=== PATIENT | female | born 1950 | race Caucasian/White ===

== ENCOUNTER 2017-07-06 09:43 | Inpatient (IN) ==
[2017-07-06] MEDS ORDERED: ALBUTEROL/IPRATROPIUM 2.5mg-0.5mg/3ml NEB IH ONE (09:58)
[2017-07-06] MEDS ORDERED: METHYLPREDNISOLONE SOD SUCC 125mg/2ml INJECTION IVP ONE (09:58)
--- NOTE | 2017-07-06 10:29 | XRay Report ---
Indication: significant dyspnea PROCEDURE: XR chest 1V: Encounter: Initial Comparison: June 01, 2017 Findings: Emphysema again noted with basilar regions of scarring. Possible worsening airspace disease in the left lower lobe. No pneumothorax. Heart size and mediastinal contours are within normal limits allowing for the rotation present. Pulmonary vascularity is stable. Impression: Developing left lower lobe atelectasis or pneumonia. .
--- NOTE | 2017-07-06 11:32 | Emergency Department Report ---
SOB HPI - General Chief Complaint: Shortness of Breath/Dyspnea Stated Complaint: SOA Time Seen by Provider: 07/06/17 09:58 - History of Present Illness 67-year-old female brought by EMS for acute hypoxemia. Patient resides at home on BiPAP except when she goes to the restroom. At that time she changed to a nasal cannula. Her came home from work and found her lying on the floor in the bathroom with the nasal cannula under her nose, but the tubing not hooked to oxygen. Oxygen was still up to BiPAP. Patient's lips were blue and she was nonresponsive. He activated EMS and reconnected her oxygen. She did become more responsive with the oxygen attached by the time EMS arrived. She was then transported. No recent fever or chills. She has not noticed acute worsening of her shortness of breath prior to this episode today where she did not have the oxygen attached. She has been on BiPAP for many months now. She does not want to be intubated if she codes, but is asking for CPR if needed. - Related Data Home Medications Medication Instructions Recorded Confirmed Fluticasone/Salmeterol 500/50 1 puff INH BID #0 02/08/10 07/06/17 [Advair 500-50Diskus] Insulin Glargine,Hum.rec.anlog 15 u SQ HS #0 02/08/10 07/06/17 [Lantus] PredniSONE [Deltasone 10 mg] 10 mg PO DAILY #0 12/23/10 07/06/17 Fenofibric Acid (Choline) 135 mg PO DAILY #0 10/07/12 07/06/17 [Trilipix] Albuterol HFA Inhaler [Ventolin 1 puff INH DAILY 07/06/17 07/06/17 Hfa 90 mcg/actuation] Ascorbate Calcium [Vitamin C] 500 mg PO DAILY 07/06/17 07/06/17 Aspirin [Adult Aspirin] 81 mg PO DAILY 07/06/17 07/06/17 Furosemide [Lasix] 80 mg PO DAILY 07/06/17 07/06/17 Insulin Glargine,Hum.rec.anlog 15 unit SQ HS 07/06/17 07/06/17 [Lantus Solostar] Insulin Lispro [Humalog Kwikpen 8 unit SQ AC 07/06/17 07/06/17 U-100] LORazepam [Lorazepam] 1 mg PO QID 07/06/17 07/06/17 Magnesium Oxide [Magnesium] 400 mg PO DAILY 07/06/17 07/06/17 Omeprazole [Omeprazole] 40 mg PO DAILY 07/06/17 07/06/17 Potassium Chloride 20 meq PO QID 07/06/17 07/06/17 Theophylline Anhydrous 300 mg PO BID 07/06/17 07/06/17 Tiotropium Handihaler [Spiriva] 1 puff INH DAILY 07/06/17 07/06/17 Allergies Allergy/AdvReac Type Severity Reaction Status Date / Time metronidazole Allergy Unknown Verified 10/07/12 10:19 tetracycline Allergy Unknown Verified 10/07/12 10:19 Metronidazole HCl Allergy Unknown Uncoded 10/07/12 10:19 Review of Systems All systems: reviewed and negative except as stated PFSH Patient Stated Medical History Chronic Obstructive Pulmonary Yes Disease (COPD) Diabetes Mellitus Type 2 Yes Gastroesophageal Reflux Yes Disease Hx Incontinence Yes Hx Urinary Tract Infection Yes Osteoarthritis Yes Depression Yes - Social History Smoking status: Former smoker Physical Exam - Limitations Limitations: other (patient initially was using all effort to breathe and was not responding to questions.) - General General appearance: lethargic, in distress (respiratory distress) - Normal Exams: Head:: Normocephalic without trauma Abdomen:: Bowel sounds positive, soft, non-tender, non-distended, no hepatosplenomegaly, masses or bruits noted - Respiratory Respiratory exam: Present: crackles (with difficult lung sounds due to BiPAP.) - Cardiovascular Cardiovascular exam: Present: normal rhythm, tachycardia Course Vital Signs Temperature 97.4 F 07/06/17 09:43 Pulse Rate 105 H 07/06/17 09:43 Respiratory Rate 27 H 07/06/17 09:43 Blood Pressure 173/73 H 07/06/17 09:43 Pulse Oximetry 95 07/06/17 09:43 Temperature 97.4 F 07/06/17 09:43 Pulse Rate 102 H 07/06/17 11:00 Respiratory Rate 23 07/06/17 11:00 Blood Pressure 119/63 07/06/17 11:00 Pulse Oximetry 99 07/06/17 11:00 Shortness of Breath/Dyspnea - [facility] Narrative Medical decision making narrative: Peripheral IV, 500 ML normal saline bolus. BiPAP looked up with oxygen and O2 sats carlo to 98%. Labs ordered and chest x-ray. White count returned slightly elevated at 11.7 with left shift. Chest x-ray shows right lower lobe pneumonia. Patient will remain on BiPAP with full O2 support and treat with Rocephin 1 g IV Zithromax by mouth per community-acquired pneumonia protocol. She was given Solu-Medrol 125 mg IV by EMS during transport. DuoNeb 2 in the ER. Viral respiratory panel is still pending at time of admission. - Differential Diagnosis Likely: acute exacerbation of chronic obstructive airways disease, congestive heart failure, community acquired pneumonia, asthma with exacerbation, pulmonary embolism - Medical Records Attestation: I reviewed the patient's medical records. - Lab Data Attestation: I reviewed the patient's lab results. Result diagrams: 07/06/17 09:51 07/06/17 09:51 Lab Results 07/06/17 07/06/17 07/06/17 Range/Units 09:51 09:51 10:21 WBC 11.7 H (4.5-11.0) T/MM3 RBC 4.85 (4.00-5.20) M/MM3 Hgb 14.7 (12-16) GM/DL Hct 49.2 H (36-46) % MCV 101.4 H (80-100) UM3 MCH 30.3 (26-34) UUG MCHC 29.9 L (31-37) GM/DL RDW Std Deviation 48.8 (36.9-50.2) FL Plt Count 239 (130-400) T/MM3 MPV 11.2 (9.4-12.4) UM3 Immature Gran % (Auto) 0.3 (0.0-0.5) % Neut % (Auto) 49.7 (33-66) % Lymph % (Auto) 36.5 (23-45) % [place] % (Auto) 7.1 (0-9.0) % Eos % (Auto) 5.6 H (0-4) % Baso % (Auto) 0.8 (0-2) % Neut # (Auto) 5.8 (1.8-7.7) T/MM3 Lymph # (Auto) 4.3 (1-4.8) T/MM3 [place] # (Auto) 0.8 (0-0.8) T/MM3 Eos # (Auto) 0.7 H (0-0.5) T/MM3 Baso # (Auto) 0.1 (0-0.2) T/MM3 Abs Immat Gran (auto) 0.03 (0.00-0.03) T/MM3 Sample Site Alveolar Air PO2 (4.0-801.0) mmHg ABG pH (7.350-7.450) ABG pCO2 (34.0-45.0) MMHG ABG pO2 (80.0-100.0) MMHG ABG HCO3 (22.0-26.0) MEQ/L ABG Total CO2 (23.0-27.0) MEQ/L ABG O2 Saturation (95.0-98.0) % ABG Base Excess (-2.0-2.0) MMOL/L Modified Aubrey Test A-a Gradient (0.0-801.0) mmHg a/A Ratio (-1.0-101.0) % O2 Delivery Method FiO2 % PEEP Inspiratory Pressure Pressure Support Turbidity < 20 (0-20) Sodium 146 H (134-144) MEQ/L Potassium 4.1 (3.6-5) MEQ/L Chloride 98 (98-107) MEQ/L Carbon Dioxide 36 H (22-30) MEQ/L Anion Gap 12 (5-15) meq/L BUN 17.0 (7-17) MG/DL Creatinine 0.7 (0.7-1.2) mg/dL GFR Calculation 84 BUN/Creatinine Ratio 24 (6-26) RATIO Glucose 263 H (65-110) MG/DL Calculated Osmolality 292 H (261-280) MOSM/KG Calcium 9.2 (8.4-10.2) MG/DL Total Bilirubin 0.60 (0.20-1.30) MG/DL Icterus Index < 2 (0-7) AST 27 (14-36) U/L ALT 17 (1-35) U/L Alkaline Phosphatase 66 (38-126) U/L Troponin I < 0.012 (0-0.12) ng/ml NT-Pro-B Natriuret Pep 59.4 (0-175) pg/mL Total Protein 6.6 (6.3-8.2) g/dL Albumin 4.2 (3.5-5.0) g/dL Globulin 2.4 (2.4-3.6) G/DL Albumin/Globulin Ratio 1.8 (1.1-2.2) RATIO Plasma Lactate Cancelled 1.1 Specimen Hemolysis < 15 (0-25) / Range/Units 10:48 WBC (4.5-11.0) T/MM3 RBC (4.00-5.20) M/MM3 Hgb (12-16) GM/DL Hct (36-46) % MCV (80-100) UM3 MCH (26-34) UUG MCHC (31-37) GM/DL RDW Std Deviation (36.9-50.2) FL Plt Count (130-400) T/MM3 MPV (9.4-12.4) UM3 Immature Gran % (Auto) (0.0-0.5) % Neut % (Auto) (33-66) % Lymph % (Auto) (23-45) % [place] % (Auto) (0-9.0) % Eos % (Auto) (0-4) % Baso % (Auto) (0-2) % Neut # (Auto) (1.8-7.7) T/MM3 Lymph # (Auto) (1-4.8) T/MM3 [place] # (Auto) (0-0.8) T/MM3 Eos # (Auto) (0-0.5) T/MM3 Baso # (Auto) (0-0.2) T/MM3 Abs Immat Gran (auto) (0.00-0.03) T/MM3 Sample Site R radial Alveolar Air PO2 161.5 (4.0-801.0) mmHg ABG pH 7.185 L* (7.350-7.450) ABG pCO2 100 H* (34.0-45.0) MMHG ABG pO2 69.8 L (80.0-100.0) MMHG ABG HCO3 37.9 H (22.0-26.0) MEQ/L ABG Total CO2 41.0 H (23.0-27.0) MEQ/L ABG O2 Saturation 87.0 L (95.0-98.0) % ABG Base Excess 4.9 H (-2.0-2.0) MMOL/L Modified Aubrey Test Positive A-a Gradient 91.7 (0.0-801.0) mmHg a/A Ratio 43.2 (-1.0-101.0) % O2 Delivery Method Bipap FiO2 40 % PEEP 5 Inspiratory Pressure 20 Pressure Support 15 Turbidity (0-20) Sodium (134-144) MEQ/L Potassium (3.6-5) MEQ/L Chloride (98-107) MEQ/L Carbon Dioxide (22-30) MEQ/L Anion Gap (5-15) meq/L BUN (7-17) MG/DL Creatinine (0.7-1.2) mg/dL GFR Calculation BUN/Creatinine Ratio (6-26) RATIO Glucose (65-110) MG/DL Calculated Osmolality (261-280) MOSM/KG Calcium (8.4-10.2) MG/DL Total Bilirubin (0.20-1.30) MG/DL Icterus Index (0-7) AST (14-36) U/L ALT (1-35) U/L Alkaline Phosphatase (38-126) U/L Troponin I (0-0.12) ng/ml NT-Pro-B Natriuret Pep (0-175) pg/mL Total Protein (6.3-8.2) g/dL Albumin (3.5-5.0) g/dL Globulin (2.4-3.6) G/DL Albumin/Globulin Ratio (1.1-2.2) RATIO Plasma Lactate Specimen Hemolysis (0-25) - Radiology Data Attestation: I reviewed the patient's radiology results. Disposition Clinical Impression: Community acquired pneumonia, Acute exacerbation of chronic obstructive airways disease Disposition: [facility] Condition: Stable Prescriptions: No Action Fluticasone/Salmeterol 500/50 [Advair 500-50Diskus] 1 puff INH BID #0 Insulin Glargine,Hum.rec.anlog [Lantus] 15 u SQ HS #0 Aspirin [Adult Aspirin] 81 mg PO DAILY Ascorbate Calcium [Vitamin C] 500 mg PO DAILY LORazepam [Lorazepam] 1 mg PO QID Insulin Glargine,Hum.rec.anlog [Lantus Solostar] 15 unit SQ HS Magnesium Oxide [Magnesium] 400 mg PO DAILY Insulin Lispro [Humalog Kwikpen U-100] 8 unit SQ AC Albuterol HFA Inhaler [Ventolin Hfa 90 mcg/actuation] 1 puff INH DAILY Theophylline Anhydrous 300 mg PO BID PredniSONE [Deltasone 10 mg] 10 mg PO DAILY #0 Fenofibric Acid (Choline) [Trilipix] 135 mg PO DAILY #0 Furosemide [Lasix] 80 mg PO DAILY Omeprazole [Omeprazole] 40 mg PO DAILY Potassium Chloride 20 meq PO QID Tiotropium Handihaler [Spiriva] 1 puff INH DAILY Referrals: John Williamson MD [Primary Care Provider] - Nicholas Cm MD [Physician] - Time of Disposition: 11:38 - Seen By: physician
[2017-07-06] MEDS: SALINE FLUSH 10ml SYRINGE IVF PRN (11:48)
[2017-07-06] MEDS: CEFTRIAXONE 1 G in NS 100 ML IV SCH (11:48)
--- NOTE | 2017-07-06 12:07 | History & Physical Report ---
History of Present Illness Date: 07/06/17 Chief complaint: Unresponsive HPI: Allyson Salgado is a 67 y/o woman with a hx of O2-dependent COPD. She wears 6- 7L of O2 continuously and uses BiPAP at night. She is wheelchair bound, left unable to ambulate b/c of breathing difficulties. Her left at 0600 on , leaving Allyson still in bed sleeping. When he returned around 0900 to get her ready to go to see Dr. Amado, however, she was lying on the floor, unresponsive. He noticed that the oxygen tubing was in the BiPAP but was not plugged in. He suspected that she was trying to check the machine, and fell out of it - it's unknown if she became unresponsive first from CO2 retention/ hypoxia or if she simply lost her balance. He called 911 and she was transferred to [facility] [place] [facility]. She was afebrile, tachycardic (105), tachypneic (27), and hypertensive. She was started on BiPAP. She was unresponsive initially and labs showed severe resp acidosis with pH of 7.185, pCO2 of 100, and pO2 of 69.8. CXR showed LLL pneumonia. WBC was elevated at 11.7; lactate level was normal. She had a mildly elevated sodium at 146. Resp panel was ordered. With BiPAP, her mentation improved and she was able to answer questions. She denies having a cough but admits to subjective fever/chills. She uses a Neti pot for sinus problems; denies seasonal allergies. She has dyspnea at baseline but it hasn't been worse lately. She denies choking/aspiration. She feels weak but not dizzy. She denies chest pain or palpitations. No abdominal pain, n/v/d or appetite changes. She has constipation. She notes urinary urgency which she attributes to furosemide use. She denies leg swelling. There are a few bruises on her legs. With her LLL pneumonia and acute on chronic resp failure, the hospitalist dept was notified for inpt admission. LOS is expected to exceed 2 overnights. Review of Systems All systems PM: 10-point ROS was reviewed, no additional remarkable complaints except - Constitutional Constitutional: Present: as per HPI - EENMT Eyes: Absent: change in vision Nose: Present: as per HPI Mouth/Throat: Present: as per HPI - Cardiovascular Cardiovascular: Present: as per HPI Vascular: Present: see HPI - Respiratory Respiratory: Present: as per HPI - Gastrointestinal Gastrointestinal: Present: as per HPI - Genitourinary Genitourinary: Present: as per HPI - Musculoskeletal Musculoskeletal: Present: as per HPI - Integumentary/Breasts Integumentary: Absent: rash - Neurological Neurological: Present: as per HPI - Psychiatric Psychiatric: Absent: anxiety - Endocrine Endocrine: Present: as per HPI - Hematologic/Lymphatic Hematologic/Lymphatic: Present: as per HPI - Allergic/Immunologic Allergic/Immunologic: Present: as per HPI Past Medical History Medical History: Medical History (Last Updated 07/06/17 @ 13:32 by Lanie Perry APRN) COPD (chronic obstructive pulmonary disease) Diabetes mellitus, type 2 GERD (gastroesophageal reflux disease) High cholesterol Medical History Updates: Previous H&P indicates mild CHF but pt denies. Echo in 2009 shows EF of 45-55%. Obesity, BMI 33.0 Surgical History: Hysterectomy. Cholecystectomy. C-sect x2. Hysterectomy Family History Updates: Father of lung cancer, unknown age. Mother of uterine cancer. Previous H&P indicates a sister with DM but pt cannot confirm. Family History: As Above - Social History Smoking status: Former smoker (quit in 2006) Substance use type: does not use Alcohol intake frequency: does not drink Household members: spouse Social history: PCP: Dr. Williamson Medications Home Medications Medication Instructions Recorded Confirmed Type Fluticasone/Salmeterol 500/50 1 puff INH BID #0 02/08/10 07/06/17 History [Advair 500-50Diskus] Insulin Glargine,Hum.rec.anlog 15 u SQ HS #0 02/08/10 07/06/17 History [Lantus] PredniSONE [Deltasone 10 mg] 10 mg PO DAILY #0 12/23/10 07/06/17 History Fenofibric Acid (Choline) 135 mg PO DAILY #0 10/07/12 07/06/17 History [Trilipix] Albuterol HFA Inhaler [Ventolin 1 puff INH DAILY 07/06/17 07/06/17 History Hfa 90 mcg/actuation] Ascorbate Calcium [Vitamin C] 500 mg PO DAILY 07/06/17 07/06/17 History Aspirin [Adult Aspirin] 81 mg PO DAILY 07/06/17 07/06/17 History Furosemide [Lasix] 80 mg PO DAILY 07/06/17 07/06/17 History Insulin Glargine,Hum.rec.anlog 15 unit SQ HS 07/06/17 07/06/17 History [Lantus Solostar] Insulin Lispro [Humalog Kwikpen 8 unit SQ AC 07/06/17 07/06/17 History U-100] LORazepam [Lorazepam] 1 mg PO QID 07/06/17 07/06/17 History Magnesium Oxide [Magnesium] 400 mg PO DAILY 07/06/17 07/06/17 History Omeprazole [Omeprazole] 40 mg PO DAILY 07/06/17 07/06/17 History Potassium Chloride 20 meq PO QID 07/06/17 07/06/17 History Theophylline Anhydrous 300 mg PO BID 07/06/17 07/06/17 History Tiotropium Handihaler [Spiriva] 1 puff INH DAILY 07/06/17 07/06/17 History Allergies Allergy/AdvReac Type Severity Reaction Status Date / Time metronidazole Allergy Unknown Verified 07/06/17 12:30 tetracycline Allergy Unknown Verified 07/06/17 12:30 Metronidazole HCl Allergy Unknown Uncoded 07/06/17 12:30 Exam Vital Signs: Temperature 97.4 F 07/06/17 09:43 Pulse Rate 101 H 07/06/17 11:15 Respiratory Rate 26 H 07/06/17 11:15 Blood Pressure 122/60 07/06/17 11:15 Pulse Oximetry 98 07/06/17 11:15 - Constitutional Present: mild distress, well nourished, well developed, obese - Routine HEENT Exam Head: Present: normocephalic Eye: Present: PERRL. Absent: conjunctival icterus, scleral injection ENT: Present: mucous membranes dry Comments: BiPAP mask in place - Routine Neck Exam Present: supple - Routine Respiratory Exam Present: wheezes (rare), diminished air movement - Routine Cardiovascular Exam Present: RRR, S1, S2 - Routine Abdominal Exam Present: soft, normoactive bowel sounds, non distended, non tender - Routine Extremities Exam Present: no edema, pulses intact - Routine Skin Exam Present: intact, dry, warm, ecchymosis (b/l lower ext) - Routine Neurological Exam Present: alert, oriented X3, CN II-XII intact, normal speech - Routine Psychiatric Exam Present: normal affect, normal thought process, cooperative Results - Labs CBC & Chem 7: 07/06/17 09:51 07/06/17 09:51 - ABG Interpretation Attestation: I reviewed and interpreted this ABG. ABG results: Laboratory Tests 07/06/17 10:48 ABG pH 7.185 L* ABG pCO2 100 H* ABG pO2 69.8 L ABG HCO3 37.9 H ABG Total CO2 41.0 H Interpretation: respiratory acidosis - Imaging and Cardiology Chest x-ray Status: image reviewed by me Additional comments: Developing left lower lobe atelectasis or pneumonia. Assessment and Plan (1) Community acquired pneumonia Current visit: Yes Status: Acute (2) Acute exacerbation of chronic obstructive airways disease Current visit: Yes Status: Acute Assessment and Plan: Assessment Acute on chronic hypercapnic/hypoxic resp failure with resp acidosis CAP COPD with exac. CO2 Narcosis DM2, insulin dependent Dyslipidemia GERD Mild CHF per hx Obesity Plan Admit, inpatient status under the hospitalist service. Consult Dr. Amado. Rocephin/azithromycin for CAP. Solu-Medrol 62.5 mg TID for COPD. Supportive care with DuoNeb, home inhalers, theophylline, BiPAP PRN. Home O2 6- 7L. Monitor blood sugars; resume home insulin. Resume lasix + KDur. I/O, daily weights. Monitor telemetry. Code status: DNI. DVT Prophylaxis: SCD's, Lovenox GI Prophylaxis: Protonix Resuscitation Status: Do Not Intubate - Physician Narrative Physician: Yong Cuevas MD Narrative: Date: 07/06/17 Time: 1551 Have independently interviewed and examined pt. Chart reviewed. Case discussed with ED physician and my DIRECTOR RECORDS MANAGEMENT. Care plan developed with my supervision; agree with above. Presents to [facility] [place] [facility] via EMS secondary to being found down at home. found her unresponsive on the ground without O2 or BiPAP. Very somnolent in ED. With initiation of BiPAP, level of alertness improved. Patient not sure what happened ; remembers getting up to go to the bathroom and the next thing she recalls is that she is her. Not been feeling well in the past days. Increasing sinus congestion. Some SOA and cough, but little congestion or sputum. No pain with breathing. No chest pressure, heaviness, or palpitations. Appetite stable. Stools slow. Urinating well. Evaluated in ED. pCO2 markedly elevated. CXR showing early infiltrate. Started on BiPAP and alertness improved. Admitted for further treatment of acute on chronic respiratory failure and pneumonia. Anticipate greater than 2 midnights of care needed. Lungs: decreased, diminished air movement. Breaths comfortably on BiPAP. CV: regular AB: soft nt BS decreased MSE: awake alert appropriate Plan: Inpatient admission to [facility] [place] for treatment of acute on chronic respiratory failure and pneumonia. Anticipate greater than 2 midnights of care needed. BiPAP for ventilatory support to decrease CO2. Ceftriaxone and azithromycin for pulmonary coverage. Solu-Medrol and breathing treatments. Will consult with Dr Amado for pulm evaluation. Monitor sugars. With patient more awake and alert, will have PT/OT see tomorrow to help improve functional status. Lovenox and SCD for DVT prevention. DNI as per her requests. Care to return to Dr Williamson at time of discharge from [facility]. Hospital Course Summary Disclaimer: The visit summary below is not to be considered part of the above Progress Note. Hospital Course: 07/06 Admit, inpatient status under the hospitalist service. Consult Dr. Amado. Rocephin/azithromycin for CAP. Solu-Medrol 62.5 mg TID for COPD. Supportive care with DuoNeb, home inhalers, theophylline, BiPAP PRN. Home O2 6- 7L. Monitor blood sugars; resume home insulin. Resume lasix + KDur. I/O, daily weights. Monitor telemetry. Code status: DNI. Care to return to Dr Williamson at time of discharge from [facility] [place] [facility].
[2017-07-06] MEDS ORDERED: ALBUTEROL/IPRATROPIUM 2.5mg-0.5mg/3ml NEB AEROSOL PRN (12:28)
[2017-07-06] MEDS: ENOXAPARIN 40 MG/0.4 ML INJECTION SQ SCH (14:24)
[2017-07-06] MEDS: AZITHROMYCIN IV 500 MG in NS 250ml 250 ML IV SCH (14:24)
[2017-07-06] MEDS: BUDESONIDE INH.SOLN 0.5mg/2ml NEB AEROSOL SCH ×3 (14:34→20:06)
[2017-07-06] MEDS ORDERED: INSULIN ASPART 100unit/ml INJECTION SQ ONE (14:45)
[2017-07-06] MEDS ORDERED: Ipratropium Inh NEB 0.02% (0.5mg/2.5ml) AEROSOL SCH (15:00)
[2017-07-06] MEDS: ALBUTEROL/IPRATROPIUM 2.5mg-0.5mg/3ml NEB AEROSOL SCH ×3 (15:20→20:06)
--- NOTE | 2017-07-06 18:10 | Pulmonology Consult Note ---
History of Present Illness Consult date: 07/06/17 Requesting physician: Yong Cuevas Reason for consult: COPD Chief complaint: unresponsive History of present illness: Allyson Salgado is a 67 y/o woman with GOLD stage D COPD. Her FEV1 is unknown due to inability to get a PFT. She has advanced disease and has been treated by several pulmonologists in the past. I recently met her and started caring for her chronic hypercapnic respiratory failure. We have helped her obtain a home BIPAP ST 25/5, rate 15 with 6 lpm O2 bled in. Her DME company is [employer]. We were in the process of trying to switch her to a Respironics Trilogy home vent to mask, but she has not yet received that. She states she uses her BIPAP ST regularly. This morning she states she remembers taking off her BIPAP and putting on the O2 to go to the bathroom. She doesn't remember anything after that. She is wheelchair bound, left unable to ambulate b/c of breathing difficulties. Her left at 0600 on 07/06/17, leaving Allyson still in bed sleeping. When he returned around 0900 to get her ready to go to see Dr. Amado, however, she was lying on the floor, unresponsive. He noticed that the oxygen tubing was still in the BiPAP and that her cannula was not plugged in. He suspected that she was trying to check the machine, and fell out of it - it's unknown if she became unresponsive first from CO2 retention/ hypoxia or if she simply lost her balance. He called 911 and she was transferred to [facility]. She was afebrile, tachycardic (105), tachypneic (27), and hypertensive. She was started on BiPAP. She was unresponsive initially and labs showed severe resp acidosis with pH of 7.185, pCO2 of 100, and pO2 of 69.8. CXR showed LLL pneumonia. WBC was elevated at 11.7; lactate level was normal. She had a mildly elevated sodium at 146. Resp panel was ordered. With BiPAP, her mentation improved and she was able to answer questions. She denies having a cough but admits to subjective fever/chills. She uses a Neti pot for sinus problems; denies seasonal allergies. She has dyspnea at baseline but it hasn't been worse lately. She denies choking/aspiration. She feels weak but not dizzy. She denies chest pain or palpitations. No abdominal pain, n/v/d or appetite changes. She has constipation. She notes urinary urgency which she attributes to furosemide use. She denies leg swelling. There are a few bruises on her legs. With her LLL pneumonia and acute on chronic resp failure, the hospitalist dept was notified for inpt admission. LOS is expected to exceed 2 overnights. Review of Systems All systems PM: 10-point ROS was reviewed, no additional remarkable complaints except - Constitutional Constitutional: Present: as per HPI - EENMT Eyes: Absent: change in vision Nose: Present: as per HPI Mouth/Throat: Present: as per HPI - Cardiovascular Cardiovascular: Present: as per HPI Vascular: Present: see HPI - Respiratory Respiratory: Present: as per HPI - Gastrointestinal Gastrointestinal: Present: as per HPI - Genitourinary Genitourinary: Present: as per HPI - Musculoskeletal Musculoskeletal: Present: as per HPI - Integumentary/Breasts Integumentary: Absent: rash - Neurological Neurological: Present: as per HPI - Psychiatric Psychiatric: Absent: anxiety - Endocrine Endocrine: Present: as per HPI - Hematologic/Lymphatic Hematologic/Lymphatic: Present: as per HPI - Allergic/Immunologic Allergic/Immunologic: Present: as per HPI Past Medical History Medical History: Medical History (Last Updated 07/06/17 @ 13:32 by Lanie Perry APRN) COPD (chronic obstructive pulmonary disease) Diabetes mellitus, type 2 GERD (gastroesophageal reflux disease) High cholesterol Medical History Updates: Previous H&P indicates mild CHF but pt denies. Echo in 2009 shows EF of 45-55%. Obesity, BMI 33.0 Surgical History: Hysterectomy. Cholecystectomy. C-sect x2. Hysterectomy Family History Updates: Father of lung cancer, unknown age. Mother of uterine cancer. Previous H&P indicates a sister with DM but pt cannot confirm. Family History: As Above - Social History Smoking status: Former smoker (quit in 2006) Substance use type: does not use Alcohol intake frequency: does not drink Household members: spouse Social history: [facility] Patient Stated Medical History Chronic Obstructive Pulmonary Yes Disease (COPD) Diabetes Mellitus Type 2 Yes Gastroesophageal Reflux Yes Disease Hx Incontinence Yes Hx Urinary Tract Infection Yes Osteoarthritis Yes Depression Yes Clinic Medical History (Last Updated 07/06/17 @ 13:32 by Lanie Perry APRN) COPD (chronic obstructive pulmonary disease) (Acute Medical) Diabetes mellitus, type 2 (Acute Medical) GERD (gastroesophageal reflux disease) (Acute Medical) High cholesterol (Acute Medical) Medical History Updates: Previous H&P indicates mild CHF but pt denies. Echo in 2009 shows EF of 45-55%. Obesity, BMI 33.0 Surgical History: Hysterectomy. Cholecystectomy. C-sect x2. Hysterectomy Family History Updates: Father of lung cancer, unknown age. Mother of uterine cancer. Previous H&P indicates a sister with DM but pt cannot confirm. - Social History Smoking status: Former smoker (quit in 2006) Substance use type: does not use Alcohol intake frequency: does not drink Household members: spouse Medications Home Medications Medication Instructions Recorded Confirmed Type Fluticasone/Salmeterol 500/50 1 puff INH BID #0 02/08/10 07/06/17 History [Advair 500-50Diskus] Insulin Glargine,Hum.rec.anlog 15 u SQ HS #0 02/08/10 07/06/17 History [Lantus] PredniSONE [Deltasone 10 mg] 10 mg PO DAILY #0 12/23/10 07/06/17 History Fenofibric Acid (Choline) 135 mg PO DAILY #0 10/07/12 07/06/17 History [Trilipix] Albuterol HFA Inhaler [Ventolin 1 puff INH DAILY 07/06/17 07/06/17 History Hfa 90 mcg/actuation] Ascorbate Calcium [Vitamin C] 500 mg PO DAILY 07/06/17 07/06/17 History Aspirin [Adult Aspirin] 81 mg PO DAILY 07/06/17 07/06/17 History Furosemide [Lasix] 80 mg PO DAILY 07/06/17 07/06/17 History Insulin Glargine,Hum.rec.anlog 15 unit SQ HS 07/06/17 07/06/17 History [Lantus Solostar] Insulin Lispro [Humalog Kwikpen 8 unit SQ AC 07/06/17 07/06/17 History U-100] LORazepam [Lorazepam] 1 mg PO QID 07/06/17 07/06/17 History Magnesium Oxide [Magnesium] 400 mg PO DAILY 07/06/17 07/06/17 History Omeprazole [Omeprazole] 40 mg PO DAILY 07/06/17 07/06/17 History Potassium Chloride 20 meq PO QID 07/06/17 07/06/17 History Theophylline Anhydrous 300 mg PO BID 07/06/17 07/06/17 History Tiotropium Handihaler [Spiriva] 1 puff INH DAILY 07/06/17 07/06/17 History Allergies Allergy/AdvReac Type Severity Reaction Status Date / Time metronidazole Allergy Unknown Verified 07/06/17 12:30 tetracycline Allergy Unknown Verified 07/06/17 12:30 Metronidazole HCl Allergy Unknown Uncoded 07/06/17 12:30 Exam Vital signs: Temperature 97.7 F 07/06/17 16:03 Pulse Rate 58 L 07/06/17 16:52 Respiratory Rate 16 07/06/17 17:14 Blood Pressure 112/58 07/06/17 16:03 Pulse Oximetry 95 07/06/17 16:03 - Constitutional no acute distress, morbidly obese - Routine HEENT Exam Head: Present: normocephalic, atraumatic Eye: Absent: conjunctival icterus - Routine Neck Exam Present: supple, full ROM - Routine Respiratory Exam Present: decreased breath sounds, prolonged expiratory phase. Absent: wheezes - Routine Cardiovascular Exam Present: RRR - Routine Abdominal Exam Present: soft. Absent: guarding - Routine Extremities Exam Absent: cyanosis, clubbing - Routine Skin Exam Present: intact. Absent: rash - Routine Neurological Exam Present: alert. Absent: motor deficit Results - Laboratory Findings CBC and BMP: 07/06/17 09:51 07/06/17 09:51 ABG ABG pH 7.185 (7.350-7.450) L* 07/06/17 10:48 ABG pCO2 100 MMHG (34.0-45.0) H* 07/06/17 10:48 ABG pO2 69.8 MMHG (80.0-100.0) L 07/06/17 10:48 ABG O2 Saturation 87.0 % (95.0-98.0) L 07/06/17 10:48 - Diagnostic Findings Chest x-ray: report reviewed, image reviewed Assessment and Plan (1) Syncope Status: Acute Assessment and plan: given history of immobility, I would recommend obtaining a CTA chest to rule out acute PE. Current Visit: Yes (2) COPD (chronic obstructive pulmonary disease) Status: Acute Assessment and plan: Severe disease, GOLD stage D. She was unable to perform PFT in our office. She is on home bronchodilators and has a preference to use Symbicort BID, Spiriva daily, neb albuterol as needed She is on O2 at 6-7 lpm at baseline and takes prednisone 10 mg daily Current Visit: Yes (3) Acute on chronic respiratory failure with hypercapnia Status: Acute Assessment and plan: I agree with the use of NIPPV. currently on [employer] BIPAP ST 20/5, rate 12, FIO2 40%. She is tolerating this with Vte 450 ML. As an outpatient we plan to switch her to a home [id number] with AVAPS-AE or iVAPS depending upon the equipment. Home vent to mask is indicated due to severe COPD with recurrent acute exacerbations of chronic hypercapnic respiratory failure. Use of the home vent to mask will reduced exacerbations, hospitalizations, disability and . Current Visit: Yes - Time Spent With Patient Total time spent is greater than 50% in coordination of care (as documented) at patient's floor/unit and/or counseling patient: 25 - 35 minutes
[2017-07-06] MEDS: LORazepam 1 MG TABLET PO SCH ×2 (18:11→21:07)
[2017-07-06] MEDS: METHYLPREDNISOLONE SOD SUCC 125mg/2ml INJECTION IVP SCH (18:11)
[2017-07-06] MEDS: INSULIN ASPART 100unit/ml INJECTION SQ SCH (18:12)
[2017-07-06] MEDS: INSULIN ASPART 100unit/ml INJECTION SQ PRN (18:12)
[2017-07-06] MEDS ORDERED: IOHEXOL 350mg/ml 75ml INJECTION ONE (18:31)
[2017-07-06] MEDS ORDERED: SALINE FLUSH 10ml SYRINGE ONE (18:31)
[2017-07-06] MEDS: THEOPHYLLINE 80 MG/15 ML PO SCH (21:02)
[2017-07-06] MEDS: INSULIN GLARGINE 100unit/ml INJECTION SQ SCH (21:08)
[2017-07-07] MEDS: METHYLPREDNISOLONE SOD SUCC 125mg/2ml INJECTION IVP SCH ×3 (00:53→17:52)
[2017-07-07] MEDS: INSULIN ASPART 100unit/ml INJECTION SQ PRN ×2 (06:40→12:36)
[2017-07-07] MEDS: BUDESONIDE INH.SOLN 0.5mg/2ml NEB AEROSOL SCH ×2 (07:00→19:52)
[2017-07-07] MEDS: ALBUTEROL/IPRATROPIUM 2.5mg-0.5mg/3ml NEB AEROSOL SCH ×4 (07:00→19:52)
--- NOTE | 2017-07-07 08:06 | CT Scan Report ---
Indication: syncope, respiratory failure PROCEDURE: CT angio pulm emboli: Encounter: Initial Comparison: None Technique: Axial CT pulmonary angiographic phase images were performed through the chest after the administration of intravenous contrast. Coronal and Sagittal MIP reconstructed images were created and reviewed. Automated Exposure Control and Iterative Reconstruction dose reducing techniques were utilized. Contrast: Omnipaque 350 74 mL Findings: Pulmonary arteries: Exam is diagnostic to the segmental pulmonary arterial level. No filling defects identified to suggest a pulmonary embolus. Other findings: Azygos fissure noted incidentally. Emphysema with areas of subpleural scarring. No lobar pneumonia, pleural effusion or pneumothorax. No dominant pulmonary nodules or masses. The central airways are patent. No axillary or mediastinal adenopathy. Heart size is normal. No pericardial effusion. The upper abdomen shows no acute findings. Impression: No pulmonary embolus or acute intrathoracic disease process seen. There is a preliminary report by [facility] radiologic. .
[2017-07-07 08:47] VITALS: BMI 32.8
[2017-07-07] MEDS: LORazepam 1 MG TABLET PO SCH ×5 (08:48→21:25)
[2017-07-07] MEDS: MAGNESIUM OXIDE 400 MG TABLET PO SCH (08:48)
[2017-07-07] MEDS: OMEPRAZOLE 20 MG CAPSULE PO SCH (08:49)
[2017-07-07] MEDS: FUROSEMIDE 80 MG TABLET PO SCH (08:49)
[2017-07-07] MEDS: ASPIRIN *EC* 81 MG TABLET PO SCH (08:49)
[2017-07-07] MEDS: ENOXAPARIN 40 MG/0.4 ML INJECTION SQ SCH (08:50)
[2017-07-07] MEDS: INSULIN ASPART 100unit/ml INJECTION SQ SCH ×3 (08:58→17:53)
[2017-07-07] MEDS: THEOPHYLLINE 80 MG/15 ML PO SCH ×2 (09:00→21:49)
--- NOTE | 2017-07-07 09:51 | Pulmonology Progress Note ---
Subjective Principal diagnosis: COPD exacerbation Interval history: Pt up to chair appears SOB. states she has SOB that is a little better, no cough or sputum noted at this time. Currently on 7L O2 per NC. Exam Vital signs: Temperature 95 F L 07/07/17 07:52 Pulse Rate 59 L 07/07/17 07:52 Respiratory Rate 28 H 07/07/17 08:48 Blood Pressure 107/60 07/07/17 07:52 Pulse Oximetry 97 07/07/17 07:52 Inpatient Medications: Generic Name Dose Route Start Last Admin Trade Name Freq PRN Reason Stop Dose Admin Albuterol/Ipratropium 3 ml 07/06/17 12:28 07/07/17 00:30 Duoneb AEROSOL 3 ml Q4H PRN Administration Shortness of air Albuterol/Ipratropium 3 ml 07/06/17 15:00 07/07/17 07:00 Duoneb AEROSOL 3 ml RTQID BINH Administration Aspirin 81 mg 07/07/17 09:00 07/07/17 08:49 Ecotrin PO 81 mg DAILY BINH Administration Budesonide 0.5 mg 07/06/17 12:28 07/07/17 07:00 Pulmicort Inhalation AEROSOL 0.5 mg RTBID BINH Administration Enoxaparin Sodium 40 mg 07/06/17 12:28 07/07/17 08:50 Lovenox SQ 40 mg DAILY BINH Administration Fenofibric Acid 135 mg 07/07/17 09:00 07/07/17 08:50 Triplix PO 135 mg DAILY BINH Administration Furosemide 80 mg 07/07/17 09:00 07/07/17 08:49 Lasix 80 Mg Tab PO 80 mg DAILY BINH Administration Ceftriaxone Sodium 1 g/ Sodium 100 mls @ 200 mls/hr 07/06/17 11:16 07/06/17 12:20 Chloride IV Infused Q24H BINH Infusion Azithromycin 500 mg/ Sodium 250 mls @ 167 mls/hr 07/06/17 12:28 07/06/17 16: 00 Chloride IV Infused Q24H BINH Infusion Insulin Aspart 8 unit 07/07/17 08:00 07/07/17 08:58 Novolog SQ 8 unit 0800 BINH Administration Insulin Aspart 13 unit 07/07/17 12:00 Novolog SQ 1200 BINH Insulin Aspart 10 unit 07/06/17 17:00 07/06/17 18:12 Novolog SQ 10 unit 1700 BINH Administration Insulin Aspart 1 - 5 unit 07/06/17 16:43 07/07/17 06:40 Novolog SQ 1 unit SS PRN Administration Hyperglycemia Protocol Insulin Glargine 15 unit 07/06/17 21:00 07/06/17 21:08 Lantus SQ 15 unit HS BINH Administration Lorazepam 0.5 mg 07/06/17 12:28 07/06/17 14:45 Ativan Inj IVP 0.5 mg Q4H PRN Administration Air hunger/Anxiety Lorazepam 1 mg 07/06/17 17:00 07/07/17 08:48 Ativan PO 1 mg QID BINH Administration Magnesium Oxide 400 mg 07/07/17 09:00 07/07/17 08:48 Magox PO 400 mg DAILY BINH Administration Methylprednisolone Sodium Succinate 62.5 mg 07/06/17 17:00 07/07/17 08:59 Solu-Medrol IVP 62.5 mg Q8HR BINH Administration Omeprazole 40 mg 07/07/17 09:00 07/07/17 08:49 Prilosec PO 40 mg DAILY BINH Administration Potassium Chloride 20 meq 07/06/17 17:30 07/07/17 08:49 K-Dur 20 Meq Tablet PO 20 meq WMHS BINH Administration Sodium Chloride 10 - 80 ml 07/06/17 09:58 07/06/17 11:48 Iv Flush IVF 10 ml PRN PRN Administration Flushing Theophylline 300 mg 07/06/17 21:00 07/07/17 09:00 Elixophyllin PO 300 mg BID BINH Administration Discontinued Medications Generic Name Dose Route Start Last Admin Trade Name Bishnuq PRN Reason Stop Dose Admin Albuterol/Ipratropium 3 ml 07/06/17 09:58 07/06/17 12:13 Duoneb IH 07/06/17 09:59 3 ml ONCE ONE Administration Insulin Aspart 13 unit 07/06/17 14:45 07/06/17 14:44 Novolog SQ 07/06/17 14:46 13 unit O ONE Administration Methylprednisolone Sodium Succinate 125 mg 07/06/17 09:58 07/06/17 11:48 Solu-Medrol IVP 07/06/17 09:59 Not Given O ONE Non-Formulary Medication 300 mg 07/06/17 21:00 Theophylline Anhydrous [Theophylline Anhydrous] PO BID BINH - Constitutional mild distress, morbidly obese, cooperative - Routine HEENT Exam Head: Present: normocephalic, atraumatic Eye: Present: EOMI, PERRL - Routine Neck Exam Present: supple, full ROM, trachea midline - Routine Respiratory Exam Present: decreased breath sounds. Absent: patient mechanically ventilated - Routine Cardiovascular Exam Present: RRR, S1, S2, no murmur - Routine Abdominal Exam Present: soft, normoactive bowel sounds - Routine Extremities Exam Present: no edema, non tender, full ROM - Routine Back/Spine/Pelvis Exam Back/Spine: Present: full ROM - Routine Skin Exam Present: intact, dry - Routine Neurological Exam Present: alert, oriented X3, CN II-XII intact - Routine Psychiatric Exam Present: normal affect, normal thought process Results - Laboratory Findings Laboratory: Laboratory Results - last 48 hr 07/06/17 07/06/17 07/07/17 16:02 20:02 03:55 WBC 7.9 RBC 4.35 Hgb 13.2 Hct 43.4 D MCV 99.8 MCH 30.3 MCHC 30.4 L RDW Std Deviation 46.3 Plt Count 178 MPV 11.1 Immature Gran % (Auto) Not performed Neut % (Auto) Not performed Lymph % (Auto) Not performed Moca % (Auto) Not performed Eos % (Auto) Not performed Baso % (Auto) Not performed Neut # (Auto) Not performed Lymph # (Auto) Not performed Moca # (Auto) Not performed Eos # (Auto) Not performed Baso # (Auto) Not performed Abs Immat Gran (auto) Not performed Neutrophils % (Manual) 97.0 H Lymphocytes % (Manual) 2.0 L Monocytes % (Manual) 1.0 Neutrophils # (Manual) 7.7 Lymphocytes # (Manual) 0.2 L Monocytes # (Manual) 0.1 RBC Morph Comment Normal Turbidity Sodium Potassium Chloride Carbon Dioxide Anion Gap BUN Creatinine GFR Calculation BUN/Creatinine Ratio Glucose Glucometer 162 120 Calculated Osmolality Calcium Icterus Index Specimen Hemolysis 07/07/17 07/07/17 03:55 05:59 WBC RBC Hgb Hct MCV MCH MCHC RDW Std Deviation Plt Count MPV Immature Gran % (Auto) Neut % (Auto) Lymph % (Auto) Moca % (Auto) Eos % (Auto) Baso % (Auto) Neut # (Auto) Lymph # (Auto) Moca # (Auto) Eos # (Auto) Baso # (Auto) Abs Immat Gran (auto) Neutrophils % (Manual) Lymphocytes % (Manual) Monocytes % (Manual) Neutrophils # (Manual) Lymphocytes # (Manual) Monocytes # (Manual) RBC Morph Comment Turbidity < 20 Sodium 143 Potassium 4.8 Chloride 100 Carbon Dioxide 35 H Anion Gap 8 BUN 15.0 Creatinine 0.6 L GFR Calculation 100 BUN/Creatinine Ratio 25 Glucose 157 H Glucometer 164 Calculated Osmolality 279 Calcium 9.5 Icterus Index < 2 Specimen Hemolysis < 15 Assessment and Plan - Assessment and Plan Acute on Chronic Hypercapnic Respiratory Failure Severe COPD GOLD stage D Syncope Obesity Plan: Pt currently on O2 at 7L per NC, uses 6-7L at home and Bipap ST. On bipap here f12, 20/5, Vt 500-700, will decrease Ip to 18 for comfort. She will require home [id number] with AVAPS-AE or iVAPS depending upon the equipment. Home vent to mask is indicated due to severe COPD with recurrent acute exacerbations of chronic hypercapnic respiratory failure. Use of the home vent to mask will reduced exacerbations, hospitalizations, disability and . Still on pulmicort BID, A/A QID, solumedrol 60mg q8hr along with rocephin and azithro for exacerbation. Currently still appears SOB, cont on current treatment and follow closely. - Time Spent With Patient Total time spent is greater than 50% in coordination of care (as documented) at patient's floor/unit and/or counseling patient: less than 15 minutes
[2017-07-07] MEDS: CEFTRIAXONE 1 G in NS 100 ML IV SCH (11:31)
[2017-07-07] MEDS: SALINE FLUSH 10ml SYRINGE IVF PRN ×2 (11:31→17:53)
[2017-07-07] MEDS: AZITHROMYCIN IV 500 MG in NS 250ml 250 ML IV SCH (12:36)
--- NOTE | 2017-07-07 13:56 | Progress Note ---
- Date 07/07/17 Subjective: Pat is feeling much better today as she is napping on C-pap. She reports that her breathing has improved. Denies having abdominal pain or nausea. Appetite has been good. She reports having some difficulty sleeping last night as she attributed to the steroids. Objective Vital signs: Temperature 95 F L 07/07/17 07:52 Pulse Rate 58 L 07/07/17 08:00 Respiratory Rate 22 07/07/17 13:04 Blood Pressure 107/60 07/07/17 07:52 Pulse Oximetry 96 07/07/17 11:45 Height/Weight/BMI: Height 1.55 m Weight 78.9 kg Body Mass Index 32.8 - Constitutional Present: no acute distress, well nourished, well developed - Routine HEENT Exam Eye: Present: EOMI ENT: Present: mucous membranes moist, dentition normal - Routine Respiratory Exam Present: diminished air movement. Absent: wheezes - Routine Cardiovascular Exam Present: RRR, S1, S2. Absent: murmur - Routine Abdominal Exam Present: soft, normoactive bowel sounds, non distended. Absent: tenderness - Routine Extremities Exam Present: normal capillary refill - Routine Skin Exam Present: intact, dry, warm - Routine Neurological Exam Present: alert, oriented X3, CN II-XII intact - Routine Lymphatic Exam Lymphatic: Absent: adenopathy - Routine Psychiatric Exam Present: normal affect Results - Labs CBC & Chem 7: 07/07/17 03:55 07/07/17 03:55 Assessment and Plan (1) Community acquired pneumonia Current visit: Yes Status: Acute (2) Acute exacerbation of chronic obstructive airways disease Current visit: Yes Status: Acute Assessment and Plan: Assessment Acute on chronic hypercapnic/hypoxic resp failure with resp acidosis CAP COPD with exac. CO2 Narcosis DM2, insulin dependent Dyslipidemia GERD Mild CHF per hx Obesity Plan Appreciate consultation by Dr Amado for pulmonary recommendations Continue with Rocephin/azithromycin for antimicrobial coverage of CAP. Remains on Bipap with schedule breathing treatments Continues on oral Lasix 80 milligrams daily, follow daily weights, monitor electrolytes Continue to monitor Accu-Cheks, continues on Lantus 15 units at bedtime, NovoLog with meals Evaluated by PT and OT today. Recommend home with assistance Overall improving DVT Prophylaxis: Lovenox Resuscitation Status: Do Not Intubate - Time spent with patient Time with patient PN: 25 minutes - Physician Narrative Physician: Yong Cuevas MD Narrative: Date: 07/07/17 Time: 1653 Have independently interviewed and examined patient. Chart reviewed. Case discussed with CM and my JIG OPERATOR. Care plan developed with my supervision; agree with above. Doing much better. Breathing feels easier-close to baseline. Not having pain with breathing. Little cough/congestion. Awake and alert-communicates well. Appetite stable. Bowels slow. Strength increasing - able to get up to commode better. Lungs: decreased breath sounds. CV: regular AB: soft nt MSE: awake alert appropriate Plan: Continue with antibiotics and respiratory treatments. Recheck CXR in am. Patient's improvement encouraging-she is hoping for discharge to home tomorrow. Will recheck lab and check on CXR to see if this is a viable option. Hospital Course Summary Disclaimer: The visit summary below is not to be considered part of the above Progress Note. Hospital Course: 07/06 Admit, inpatient status under the hospitalist service. Consult Dr. Amado. Rocephin/azithromycin for CAP. Solu-Medrol 62.5 mg TID for COPD. Supportive care with DuoNeb, home inhalers, theophylline, BiPAP PRN. Home O2 6- 7L. Monitor blood sugars; resume home insulin. Resume lasix + KDur. I/O, daily weights. Monitor telemetry. Code status: DNI. Care to return to Dr Williamson at [place] [facility] 07/[address] Amado for pulmonary recommendations Continue with Rocephin/azithromycin for antimicrobial coverage of CAP. Remains on Bipap with schedule breathing treatments Continues on oral Lasix 80 milligrams daily, follow daily weights, monitor electrolytes Continue to monitor Accu-Cheks, continues on Lantus 15 units at bedtime, NovoLog with meals Evaluated by PT and OT today. Recommend home with assistance Overall improving
[2017-07-07] MEDS ORDERED: BISACODYL 10 MG SUPPOSITORY RECTALLY PRN (17:30)
[2017-07-07] MEDS ORDERED: POLYETHYL GLYCOL 3350 17gm PACKET PO PRN (17:31)
[2017-07-07] MEDS ORDERED: SENNA + DOCUSATE TABLET PO PRN (17:31)
[2017-07-07] MEDS: REFRESH CLASSIC Eye Drops 0.4ml EACH EYE PRN ×2 (18:40→21:33)
[2017-07-07] MEDS: INSULIN GLARGINE 100unit/ml INJECTION SQ SCH (21:25)
[2017-07-08] MEDS: METHYLPREDNISOLONE SOD SUCC 125mg/2ml INJECTION IVP SCH ×2 (02:05→09:25)
[2017-07-08] MEDS: ALBUTEROL/IPRATROPIUM 2.5mg-0.5mg/3ml NEB AEROSOL SCH ×4 (07:36→19:51)
[2017-07-08] MEDS: BUDESONIDE INH.SOLN 0.5mg/2ml NEB AEROSOL SCH ×2 (07:36→19:51)
[2017-07-08] MEDS: OMEPRAZOLE 20 MG CAPSULE PO SCH ×2 (08:08→11:42)
[2017-07-08] MEDS: FUROSEMIDE 80 MG TABLET PO SCH (08:09)
--- NOTE | 2017-07-08 08:34 | XRay Report ---
INDICATION: F/U infiltrate PROCEDURE: CHEST 2-VIEWS UPRIGHT (PA & LAT) Encounter: Initial COMPARISON: Chest CT and chest x-ray dated July 06, 2017 FINDINGS: Worsening lower lobe airspace disease bilaterally. Hyperinflation with flattening of hemidiaphragms. No pneumothorax or definite effusion. Heart size and mediastinal contours are stable. Pulmonary vascularity appears normal. Impression: Worsening lower lobe airspace disease could be due to pneumonia or aspiration. .
[2017-07-08] MEDS: INSULIN ASPART 100unit/ml INJECTION SQ SCH ×3 (09:25→17:26)
[2017-07-08] MEDS: MAGNESIUM OXIDE 400 MG TABLET PO SCH (09:26)
[2017-07-08] MEDS: ASPIRIN *EC* 81 MG TABLET PO SCH (09:26)
[2017-07-08] MEDS: ENOXAPARIN 40 MG/0.4 ML INJECTION SQ SCH (09:26)
[2017-07-08] MEDS: SALINE FLUSH 10ml SYRINGE IVF PRN ×2 (09:26→11:15)
[2017-07-08] MEDS: LORazepam 1 MG TABLET PO SCH ×4 (09:26→21:55)
[2017-07-08] MEDS: THEOPHYLLINE 80 MG/15 ML PO SCH ×2 (09:27→22:33)
[2017-07-08] MEDS: REFRESH CLASSIC Eye Drops 0.4ml EACH EYE PRN (09:29)
[2017-07-08] MEDS ORDERED: acetaZOLAMIDE SR 500 MG CAPSULE PO ONE (09:45)
--- NOTE | 2017-07-08 09:59 | Pulmonology Progress Note ---
Subjective Principal diagnosis: COPD exacerbation Interval history: Had a run of V tach last night. patient was aware of palipations but no syncope or chest pain It is possible that VT is the reason for her collapse at home Exam Vital signs: Temperature 96.5 F L 07/08/17 00:05 Pulse Rate 140 H 07/08/17 07:10 Respiratory Rate 24 07/08/17 09:26 Blood Pressure 146/90 H 07/08/17 07:10 Pulse Oximetry 97 07/08/17 07:37 Inpatient Medications: Generic Name Dose Route Start Last Admin Trade Name Freq PRN Reason Stop Dose Admin Acetazolamide 500 mg 07/08/17 09:45 Diamox 500 Mg Sequels PO 07/08/17 09:46 O ONE Albuterol/Ipratropium 3 ml 07/06/17 12:28 07/07/17 00:30 Duoneb AEROSOL 3 ml Q4H PRN Administration Shortness of air Albuterol/Ipratropium 3 ml 07/06/17 15:00 07/08/17 07:36 Duoneb AEROSOL 3 ml RTQID [facility] Administration Artificial Tears 1 drop 07/07/17 18:34 07/08/17 09:29 Refresh Classic EACH EYE 1 drop QID PRN Administration Dry eyes Aspirin 81 mg 07/07/17 09:00 07/08/17 09:26 Ecotrin PO 81 mg DAILY [facility] Administration Bisacodyl 10 mg 07/07/17 17:30 Dulcolax RECTALLY DAILY PRN Constipation Budesonide 0.5 mg 07/06/17 12:28 07/08/17 07:36 Pulmicort Inhalation AEROSOL 0.5 mg RTBID [facility] Administration Enoxaparin Sodium 40 mg 07/06/17 12:28 07/08/17 09:26 Lovenox SQ 40 mg DAILY [facility] Administration Fenofibric Acid 135 mg 07/07/17 09:00 07/08/17 09:27 Triplix PO 135 mg DAILY [facility] Administration Furosemide 80 mg 07/07/17 09:00 07/08/17 08:09 Lasix 80 Mg Tab PO 80 mg DAILY [facility] Administration Ceftriaxone Sodium 1 g/ Sodium 100 mls @ 200 mls/hr 07/06/17 11:16 07/07/17 12:37 Chloride IV Infused Q24H [facility] Infusion Azithromycin 500 mg/ Sodium 250 mls @ 167 mls/hr 07/06/17 12:28 07/07/17 14: 56 Chloride IV Infused Q24H [facility] Infusion Insulin Aspart 8 unit 07/07/17 08:00 07/08/17 09:25 Novolog SQ 8 unit 0800 [facility] Administration Insulin Aspart 13 unit 07/07/17 12:00 07/07/17 12:36 Novolog SQ 13 unit 1200 [facility] Administration Insulin Aspart 10 unit 07/06/17 17:00 07/07/17 17:53 Novolog SQ 10 unit 1700 [facility] Administration Insulin Aspart 1 - 5 unit 07/06/17 16:43 07/07/17 12:36 Novolog SQ 1 unit SS PRN Administration Hyperglycemia Protocol Insulin Glargine 15 unit 07/06/17 21:00 07/07/17 21:25 Lantus SQ 15 unit HS [facility] Administration Lorazepam 0.5 mg 07/06/17 12:28 07/08/17 06:53 Ativan Inj IVP 0.5 mg Q4H PRN Administration Air hunger/Anxiety Lorazepam 1 mg 07/06/17 17:00 07/08/17 09:26 Ativan PO 1 mg QID [facility] Administration Magnesium Hydroxide 30 ml 07/07/17 17:30 Mom PO DAILY PRN Constipation Magnesium Oxide 400 mg 07/07/17 09:00 07/08/17 09:26 Magox PO 400 mg DAILY [facility] Administration Methylprednisolone Sodium Succinate 62.5 mg 07/06/17 17:00 07/08/17 09:25 Solu-Medrol IVP 62.5 mg Q8HR [facility] Administration Omeprazole 40 mg 07/07/17 09:00 07/08/17 08:08 Prilosec PO 40 mg DAILY [facility] Administration Polyethylene Glycol 17 gm 07/07/17 17:31 Miralax PO DAILY PRN Constipation Potassium Chloride 20 meq 07/06/17 17:30 07/08/17 09:26 K-Dur 20 Meq Tablet PO 20 meq [facility] Administration Senna/Docusate Sodium 1 tab 07/07/17 17:31 Senna Plus Tablet PO BID PRN Constipation Sodium Chloride 10 - 80 ml 07/06/17 09:58 07/08/17 09:26 Iv Flush IVF 10 ml PRN PRN Administration Flushing Theophylline 300 mg 07/06/17 21:00 07/08/17 09:27 Elixophyllin PO 300 mg BID [facility] Administration Discontinued Medications Generic Name Dose Route Start Last Admin Trade Name Nickie PRN Reason Stop Dose Admin Albuterol/Ipratropium 3 ml 07/06/17 09:58 07/06/17 12:13 Duoneb IH 07/06/17 09:59 3 ml ONCE ONE Administration Insulin Aspart 13 unit 07/06/17 14:45 07/06/17 14:44 Novolog SQ 07/06/17 14:46 13 unit O ONE Administration Methylprednisolone Sodium Succinate 125 mg 07/06/17 09:58 07/06/17 11:48 Solu-Medrol IVP 07/06/17 09:59 Not Given O ONE Non-Formulary Medication 300 mg 07/06/17 21:00 Theophylline Anhydrous [Theophylline Anhydrous] PO BID [facility] - Constitutional no acute distress, obese - Routine Neck Exam Present: supple - Routine Respiratory Exam Present: decreased breath sounds, prolonged expiratory phase. Absent: wheezes - Routine Cardiovascular Exam Present: tachycardia - Routine Abdominal Exam Present: soft. Absent: guarding - Routine Skin Exam Present: erythema. Absent: cyanosis, rash Results - Laboratory Findings Laboratory: Laboratory Results - last 48 hr 07/06/17 07/06/17 07/07/17 16:02 20:02 03:55 WBC 7.9 RBC 4.35 Hgb 13.2 Hct 43.4 D MCV 99.8 MCH 30.3 MCHC 30.4 L RDW Std Deviation 46.3 Plt Count 178 MPV 11.1 Immature Gran % (Auto) Not performed Neut % (Auto) Not performed Lymph % (Auto) Not performed [place] % (Auto) Not performed Eos % (Auto) Not performed Baso % (Auto) Not performed Neut # (Auto) Not performed Lymph # (Auto) Not performed [place] # (Auto) Not performed Eos # (Auto) Not performed Baso # (Auto) Not performed Abs Immat Gran (auto) Not performed Neutrophils % (Manual) 97.0 H Band Neutrophils % Lymphocytes % (Manual) 2.0 L Monocytes % (Manual) 1.0 Neutrophils # (Manual) 7.7 Band Neutrophils # Lymphocytes # (Manual) 0.2 L Monocytes # (Manual) 0.1 RBC Morph Comment Normal Turbidity Sodium Potassium Chloride Carbon Dioxide Anion Gap BUN Creatinine GFR Calculation BUN/Creatinine Ratio Glucose Glucometer 162 120 Calculated Osmolality Calcium Icterus Index Specimen Hemolysis Ur Collection Type Urine Color Urine Clarity Urine pH Ur Specific [place] Urine Protein Urine Glucose (UA) Urine Ketones Urine Occult Blood Urine Nitrate Urine Bilirubin Urine Urobilinogen Ur Leukocyte Esterase Urinalysis Comment 07/07/17 07/07/17 07/07/17 03:55 05:59 10:08 WBC RBC Hgb Hct MCV MCH MCHC RDW Std Deviation Plt Count MPV Immature Gran % (Auto) Neut % (Auto) Lymph % (Auto) [place] % (Auto) Eos % (Auto) Baso % (Auto) Neut # (Auto) Lymph # (Auto) [place] # (Auto) Eos # (Auto) Baso # (Auto) Abs Immat Gran (auto) Neutrophils % (Manual) Band Neutrophils % Lymphocytes % (Manual) Monocytes % (Manual) Neutrophils # (Manual) Band Neutrophils # Lymphocytes # (Manual) Monocytes # (Manual) RBC Morph Comment Turbidity < 20 Sodium 143 Potassium 4.8 Chloride 100 Carbon Dioxide 35 H Anion Gap 8 BUN 15.0 Creatinine 0.6 L GFR Calculation 100 BUN/Creatinine Ratio 25 Glucose 157 H Glucometer 164 156 Calculated Osmolality 279 Calcium 9.5 Icterus Index < 2 Specimen Hemolysis < 15 Ur Collection Type Urine Color Urine Clarity Urine pH Ur Specific [place] Urine Protein Urine Glucose (UA) Urine Ketones Urine Occult Blood Urine Nitrate Urine Bilirubin Urine Urobilinogen Ur Leukocyte Esterase Urinalysis Comment 07/07/17 07/07/17 07/07/17 10:20 15:34 15:54 WBC RBC Hgb Hct MCV MCH MCHC RDW Std Deviation Plt Count MPV Immature Gran % (Auto) Neut % (Auto) Lymph % (Auto) [place] % (Auto) Eos % (Auto) Baso % (Auto) Neut # (Auto) Lymph # (Auto) [place] # (Auto) Eos # (Auto) Baso # (Auto) Abs Immat Gran (auto) Neutrophils % (Manual) Band Neutrophils % Lymphocytes % (Manual) Monocytes % (Manual) Neutrophils # (Manual) Band Neutrophils # Lymphocytes # (Manual) Monocytes # (Manual) RBC Morph Comment Turbidity Sodium Potassium Chloride Carbon Dioxide Anion Gap BUN Creatinine GFR Calculation BUN/Creatinine Ratio Glucose Glucometer 56 86 Calculated Osmolality Calcium Icterus Index Specimen Hemolysis Ur Collection Type Urine, cath straight Urine Color Yellow Urine Clarity Clear Urine pH 6.0 Ur Specific [place] <=1.005 L Urine Protein Negative Urine Glucose (UA) Negative Urine Ketones Negative Urine Occult Blood Trace-intact Urine Nitrate Negative Urine Bilirubin Negative Urine Urobilinogen 0.2 Ur Leukocyte Esterase Negative Urinalysis Comment Microscopic not ind. 07/07/17 07/07/17 07/08/17 17:50 19:52 04:04 WBC 14.0 H D RBC 4.48 Hgb 13.6 Hct 44.0 MCV 98.2 MCH 30.4 MCHC 30.9 L RDW Std Deviation 45.4 Plt Count 192 MPV 11.0 Immature Gran % (Auto) Not performed Neut % (Auto) Not performed Lymph % (Auto) Not performed [place] % (Auto) Not performed Eos % (Auto) Not performed Baso % (Auto) Not performed Neut # (Auto) Not performed Lymph # (Auto) Not performed [place] # (Auto) Not performed Eos # (Auto) Not performed Baso # (Auto) Not performed Abs Immat Gran (auto) Not performed Neutrophils % (Manual) 93.0 H Band Neutrophils % 1.0 Lymphocytes % (Manual) 6.0 L Monocytes % (Manual) Neutrophils # (Manual) 13.0 H Band Neutrophils # 0.1 Lymphocytes # (Manual) 0.8 L Monocytes # (Manual) RBC Morph Comment Normal Turbidity Sodium Potassium Chloride Carbon Dioxide Anion Gap BUN Creatinine GFR Calculation BUN/Creatinine Ratio Glucose Glucometer 141 116 Calculated Osmolality Calcium Icterus Index Specimen Hemolysis Ur Collection Type Urine Color Urine Clarity Urine pH Ur Specific [place] Urine Protein Urine Glucose (UA) Urine Ketones Urine Occult Blood Urine Nitrate Urine Bilirubin Urine Urobilinogen Ur Leukocyte Esterase Urinalysis Comment 07/08/17 07/08/17 04:04 06:08 WBC RBC Hgb Hct MCV MCH MCHC RDW Std Deviation Plt Count MPV Immature Gran % (Auto) Neut % (Auto) Lymph % (Auto) [place] % (Auto) Eos % (Auto) Baso % (Auto) Neut # (Auto) Lymph # (Auto) [place] # (Auto) Eos # (Auto) Baso # (Auto) Abs Immat Gran (auto) Neutrophils % (Manual) Band Neutrophils % Lymphocytes % (Manual) Monocytes % (Manual) Neutrophils # (Manual) Band Neutrophils # Lymphocytes # (Manual) Monocytes # (Manual) RBC Morph Comment Turbidity < 20 Sodium 144 Potassium 4.9 Chloride 97 L Carbon Dioxide 41 H* Anion Gap 6 BUN 21.0 H Creatinine 0.7 GFR Calculation 84 BUN/Creatinine Ratio 30 H Glucose 142 H Glucometer 143 Calculated Osmolality 282 H Calcium 9.6 Icterus Index < 2 Specimen Hemolysis < 15 Ur Collection Type Urine Color Urine Clarity Urine pH Ur Specific [place] Urine Protein Urine Glucose (UA) Urine Ketones Urine Occult Blood Urine Nitrate Urine Bilirubin Urine Urobilinogen Ur Leukocyte Esterase Urinalysis Comment Assessment and Plan (1) Syncope Status: Acute Assessment and plan: CTA was negative possibly related to ventricular arrhythmia. Recommend cardiology evaluation Current Visit: Yes (2) COPD (chronic obstructive pulmonary disease) Status: Acute Assessment and plan: Severe disease, GOLD stage D. She was unable to perform PFT in our office. She is on home bronchodilators and has a preference to use Symbicort BID, Spiriva daily, neb albuterol as needed She is on O2 at 6-7 lpm at baseline and takes prednisone 10 mg daily continue current inpatient regimen Current Visit: Yes (3) Acute on chronic respiratory failure with hypercapnia Status: Acute Assessment and plan: I agree with the use of NIPPV. currently on Vision BIPAP ST 18/5, rate 12, FIO2 35%. She is tolerating this with Vte 450 ML. As an outpatient we plan to switch her to a home [id number] with AVAPS-AE or iVAPS depending upon the equipment. Home vent to mask is indicated due to severe COPD with recurrent acute exacerbations of chronic hypercapnic respiratory failure. Use of the home vent to mask will reduced exacerbations, hospitalizations, disability and . Current Visit: Yes - Assessment and Plan Acute on Chronic Hypercapnic Respiratory Failure Severe COPD GOLD stage D Syncope Obesity - Time Spent With Patient Total time spent is greater than 50% in coordination of care (as documented) at patient's floor/unit and/or counseling patient: less than 15 minutes
--- NOTE | 2017-07-08 10:57 | Progress Note ---
- Date 07/08/17 Subjective: Allyson was seen during breakfast. She immediately told me that she feels anxious and knows her heart is beating fast. HR has been 120-140 since 0600. She denies chest pain, weakness, lightheadedness or dizziness. Her breathing is improving though she admits that it's not quite back to baseline. Objective Vital signs: Temperature 96.5 F L 07/08/17 00:05 Pulse Rate 140 H 07/08/17 07:10 Respiratory Rate 24 07/08/17 09:26 Blood Pressure 146/90 H 07/08/17 07:10 Pulse Oximetry 97 07/08/17 07:37 Height/Weight/BMI: Height 1.55 m Weight 77.4 kg Body Mass Index 32.8 - Constitutional Present: mild distress, well nourished, well developed - Routine HEENT Exam Head: Present: normocephalic Eye: Present: PERRL. Absent: conjunctival icterus, scleral injection - Routine Respiratory Exam Present: accessory muscle use, decreased breath sounds, prolonged expiratory phase, diminished air movement - Routine Cardiovascular Exam Present: RRR, S1, S2, tachycardia - Routine Abdominal Exam Present: soft, normoactive bowel sounds - Routine Extremities Exam Present: no edema (pedal) Comments: face is edematous - Routine Skin Exam Present: intact, dry, warm - Routine Neurological Exam Present: alert, oriented X3, normal speech - Routine Psychiatric Exam Present: cooperative, anxious Results - Labs CBC & Chem 7: 07/08/17 04:04 07/08/17 04:04 Assessment and Plan (1) Community acquired pneumonia Current visit: Yes Status: Acute (2) Acute exacerbation of chronic obstructive airways disease Current visit: Yes Status: Acute Assessment and Plan: Assessment Acute on chronic hypercapnic/hypoxic resp failure with resp acidosis CAP COPD with exac. CO2 Narcosis Sinus tachycardia Nonsustained VTAC Anxiety DM2, insulin dependent Dyslipidemia GERD Mild CHF per hx Obesity Plan Sinus tach 120-140 this am. Highly anxious despite being on lorazepam 1 mg PO QID + PRN lorazepam IV (1 daily PRN dose). CTA chest done on 07/06 was neg for PE. Questionable 19-beat run of VT -- tele reviewed and this looks more like A-fib with aberrancy vs. VT. Regardless, with ongoing tachycardia this am will consult Dr. Aguilar and order echo. Solu-Medrol converted to Prednisone. Dr. Amado recommending home vent to mask. Continue abx for CAP. CXR reviewed - b/l lower lobe pneumonia. Labs -CO2 up to 41 and Diamox ordered. -leukocytosis - likely r/t steroids -K 4.9 - decrease KDur from QID to TID. Cont Lasix. creatinine 0.7. -hyperglycemia after breakfast this am with sugar of 297 - cont insulin. D/W RN, Rosalia Keller, KILN PUSHER and Dr. Cuevas. DVT Prophylaxis: Lovenox Resuscitation Status: Do Not Intubate - Time spent with patient Time with patient PN: 25 minutes - Physician Narrative Physician: Yong Cuevas MD Narrative: Date: 07/08/17 Time: 1115 Have independently interviewed and examined pt. Chart reviewed. Case discussed with CM and my KILN PUSHER. Care plan developed with my supervision; agree with above. Feels more anxious and edgy this morning. Heart beating faster. Feels large component is not sleeping - wanted to sleep this morning, but nursing needing to check on her and do things every 2 hours. Breathing slightly easier but feels if she had her albuterol inhaler it would help more. Little cough/ congestion. No nausea. Appetite fair. Feels bowel not moving-discussed about prn Dulcolax to help. HR in 140s. Did have episode of Nonsustained VTACH overnight. Lungs: decreased bilaterally, little air movement. CV: tachy, regular AB: soft nt/nd MSE: awake alert, thought linear. Plan: Will consult Dr Aguilar for evaluation of VTACH. Obtain ECHO. Will change Solu-Medrol to Prednisone 40mg starting today (less steroid may help decrease anxiety and help sleep). Continue antibiotic therapy. Will give Diamox 500mg x1 as CO2 increased; urine output has been exceeding intake and weight trending down. Monitor lab. Hospital Course Summary Disclaimer: The visit summary below is not to be considered part of the above Progress Note. Hospital Course: 07/06/17 Admit, inpatient status under the hospitalist service. Consult Dr. Amado. Rocephin/azithromycin for CAP. Solu-Medrol 62.5 mg TID for COPD. Supportive care with DuoNeb, home inhalers, theophylline, BiPAP PRN. Home O2 6- 7L. Monitor blood sugars; resume home insulin. Resume lasix + KDur. I/O, daily weights. Monitor telemetry. Code status: DNI. Care to return to Dr Williamson at [place] [facility] [place] 07/07/[address] Amado for pulmonary recommendations. Continue with Rocephin/azithromycin for antimicrobial coverage of CAP. Remains on Bipap with schedule breathing treatments. Continues on oral Lasix 80 milligrams daily, follow daily weights, monitor electrolytes. Continue to monitor Accu-Cheks, continues on Lantus 15 units at bedtime, NovoLog with meals. Evaluated by PT and OT today. Recommend home with assistance. 07/08/17 Sinus tach 120-140 this am. Highly anxious despite being on lorazepam 1 mg PO QID + PRN lorazepam IV (1 daily PRN dose). Questionable 19-beat run of VT -- tele reviewed and this looks more like A-fib with aberrancy vs. VT. Regardless, with ongoing tachycardia this am will consult Dr. Aguilar and order echo. Solu-Medrol converted to Prednisone 40mg daily. Dr. Amado recommending home vent to mask. Continue abx for CAP. CXR reviewed - b/l lower lobe pneumonia. Labs: -CO2 up to 41 and Diamox ordered. -leukocytosis - likely r/t steroids -K 4.9 - decrease KDur from QID to TID. Cont Lasix. creatinine 0.7. -hyperglycemia after breakfast this am with sugar of 297 - cont insulin.
--- NOTE | 2017-07-08 11:02 | Cardiology Consult Note ---
<Rosalia Keller - Last Filed: 07/09/17 10:03> History of Present Illness Consult date: 07/08/17 Requesting physician: Yong Cuevas Chief complaint: NSVT History of present illness: Allyson is a 67 year old female with a history of O2 dependant COPD and denies heart problems of any kind who was admitted with LLL CAP, acute respiratory failure, and acute exacerbation of COPD. This morning she felt badly and was noted to be in atrial fibrillation with aberrancy. Dr. Aguilar was consulted for further evaluation and we appreciate the consult. She is examined in her room on Medical this morning. She reports fever, chills, dyspnea at rest, worse lately, weakness, constipation and urinary urgency. She denies cough, sore throat, dizziness, chest pain, pressure palpitations, N/V/D, or edema. Review of Systems - Constitutional Constitutional: Present: chills, fever(s), weakness - EENMT Eyes: Absent: change in vision Balance: Absent: vertigo Mouth/Throat: Absent: sore throat - Cardiovascular Cardiovascular: Present: syncope, dyspnea on exertion. Absent: chest pain, palpitations, heart murmur Rhythm: Absent: abnormal rhythm Vascular: Absent: pedal edema - Respiratory Respiratory: Present: dyspnea, dyspnea on exertion. Absent: cough - Gastrointestinal Gastrointestinal: Present: constipation. Absent: abdominal pain, diarrhea, nausea, vomiting - Genitourinary Genitourinary: Present: urinary frequency, urinary urgency. Absent: dysuria - Integumentary/Breasts Integumentary: Absent: rash - Neurological Neurological: Absent: dizziness - Endocrine Endocrine: Absent: palpitations PFSH Patient Stated Medical History Chronic Obstructive Pulmonary Yes Disease (COPD) Diabetes Mellitus Type 2 Yes Gastroesophageal Reflux Yes Disease Hx Incontinence Yes Hx Urinary Tract Infection Yes Osteoarthritis Yes Depression Yes Clinic Medical History (Last Updated 07/06/17 @ 13:32 by Lanie Perry APRN) COPD (chronic obstructive pulmonary disease) (Acute Medical) Diabetes mellitus, type 2 (Acute Medical) GERD (gastroesophageal reflux disease) (Acute Medical) High cholesterol (Acute Medical) Medical History Updates: Previous H&P indicates mild CHF but pt denies. Echo in 2009 shows EF of 45-55%. Obesity, BMI 33.0 Surgical History: Hysterectomy. Cholecystectomy. C-sect x2. Hysterectomy Family History Updates: Father of lung cancer, unknown age. Mother of uterine cancer. Previous H&P indicates a sister with DM but pt cannot confirm. - Social History Smoking status: Former smoker (quit in 2006) Substance use type: does not use Alcohol intake frequency: does not drink Household members: spouse Current residence: Apartment/Private Home Medications Home Medications Medication Instructions Recorded Confirmed Type Insulin Glargine,Hum.rec.anlog 15 u SQ HS #0 02/08/10 07/06/17 History [Lantus] Fenofibric Acid (Choline) 135 mg PO DAILY #0 10/07/12 07/06/17 History [Trilipix] Albuterol HFA Inhaler [Ventolin 1 puff INH DAILY 07/06/17 07/06/17 History Hfa 90 mcg/actuation] Ascorbate Calcium [Vitamin C] 500 mg PO DAILY 07/06/17 07/06/17 History Furosemide [Lasix] 80 mg PO DAILY 07/06/17 07/06/17 History Insulin Glargine,Hum.rec.anlog 15 unit SQ HS 07/06/17 07/06/17 History [Lantus Solostar] Insulin Lispro [Humalog Kwikpen 8 unit SQ AC 07/06/17 07/06/17 History U-100] LORazepam [Lorazepam] 1 mg PO QID 07/06/17 07/06/17 History Magnesium Oxide [Magnesium] 400 mg PO DAILY 07/06/17 07/06/17 History Omeprazole 40 mg PO DAILY 07/06/17 07/06/17 History Potassium Chloride 20 meq PO QID 07/06/17 07/06/17 History Theophylline Anhydrous 300 mg PO BID 07/06/17 07/06/17 History Albuterol Neb (0.083%) [Proventil 2.5 mg AEROSOL Q4H PRN #100 vial 07/11/17 Rx Neb (0.083%)] Apixaban [Eliquis] 5 mg PO BID #60 tab 07/11/17 Rx Budesonide/Formoterol Fumarate 2 puff INH BID #1 inhaler 07/11/17 Rx [Symbicort 160-4.5 Mcg Inhaler] Flecainide [Tambocor] 50 mg PO BID #60 tab 07/11/17 Rx Ipratropium Wheeler 1 dose AEROSOL Q4H PRN #100 vial 07/11/17 Rx Nystatin Oral Liq. [Mycostatin] 5 ml PO QID #150 ml 07/11/17 Rx PEG 3350 17gm PACKET [Miralax] 17 gm PO DAILY packet 07/11/17 Rx Tiotropium Handihaler [Spiriva] 1 puff INH DAILY #1 inhaler 07/11/17 Rx predniSONE [Prednisone] 30 mg PO DAILY #30 tab 07/11/17 Rx Allergies Allergy/AdvReac Type Severity Reaction Status Date / Time metronidazole Allergy Unknown Verified 07/06/17 12:30 tetracycline Allergy Unknown Verified 07/06/17 12:30 Metronidazole HCl Allergy Unknown Uncoded 07/06/17 12:30 Exam Vital signs: Temperature 96.5 F L 07/08/17 00:05 Pulse Rate 140 H 07/08/17 07:10 Respiratory Rate 24 07/08/17 09:26 Blood Pressure 146/90 H 07/08/17 07:10 Pulse Oximetry 97 07/08/17 07:37 - Constitutional no acute distress, well nourished, obese, cooperative - Routine HEENT Exam Head: Present: normocephalic ENT: Present: mucous membranes moist - Routine Neck Exam Absent: JVD, carotid bruit - Routine Chest/Breast/Axilla Exam Chest wall: Absent: tenderness - Routine Respiratory Exam Present: dyspnea, decreased breath sounds Comments: on bi-pap - Routine Cardiovascular Exam Present: no murmur, tachycardia - Routine Abdominal Exam Present: soft, non tender - Routine Extremities Exam Present: no edema - Routine Skin Exam Present: intact, dry, warm - Routine Neurological Exam Present: alert, oriented X3 - Routine Psychiatric Exam Present: normal affect, normal thought process Results 07/09/17 04:05 07/09/17 04:05 CBC 07/08/17 Range/Units 04:04 WBC 14.0 H D (4.5-11.0) T/MM3 RBC 4.48 (4.00-5.20) M/MM3 Hgb 13.6 (12-16) GM/DL Hct 44.0 (36-46) % Plt Count 192 (130-400) T/MM3 Neut # (Auto) Not performed Lymph # (Auto) Not performed [place] # (Auto) Not performed Eos # (Auto) Not performed Baso # (Auto) Not performed Comprehensive Metabolic Panel 07/08/17 Range/Units 04:04 Sodium 144 (134-144) MEQ/L Potassium 4.9 (3.6-5) MEQ/L Chloride 97 L (98-107) MEQ/L Carbon Dioxide 41 H* (22-30) MEQ/L BUN 21.0 H (7-17) MG/DL Creatinine 0.7 (0.7-1.2) mg/dL Glucose 142 H (65-110) MG/DL Calcium 9.6 (8.4-10.2) MG/DL Intake and Output 07/07/17 07/08/17 07/08/17 22:59 06:59 14:59 Intake Total 240 / 240 200 / 200 480 / 480 Output Total 400 / 400 250 / 250 850 / 850 Balance -160 / -160 -50 / -50 -370 / -370 Intake: Oral 240 / 240 200 / 200 480 / 480 Output: Urine 400 / 400 250 / 250 850 / 850 Other: Urine Appearance Clear Clear Clear Urine Color Yellow Yellow Yellow Stool Color Brown Stool Consistency Soft Formed Size of Bowel Movement Moderate # Bowel Movements 1 Weight 170 lb 10.205 oz Patient Weight 07/09/17 06:59 Weight 170 lb 10.205 oz - Imaging and Cardiology Imaging & Cardiology Narrative: Date of Exam: 07/08/17 Ordering Provider: Yong Cuevas MD Type of Exam(s): XR chest 2V Reason for Exam(s): F/U infiltrate INDICATION: F/U infiltrate PROCEDURE: CHEST 2-VIEWS UPRIGHT (PA & LAT) Encounter: Initial COMPARISON: Chest CT and chest x-ray dated July 06, 2017 FINDINGS: Worsening lower lobe airspace disease bilaterally. Hyperinflation with flattening of hemidiaphragms. No pneumothorax or definite effusion. Heart size and mediastinal contours are stable. Pulmonary vascularity appears normal. Impression: Worsening lower lobe airspace disease could be due to pneumonia or aspiration. . 07/08/17 11:44 07/09/17 10:05 Date of Exam: 07/08/17 Type of Exam(s): US echo doppler complete DATE OF PROCEDURE July 08, 2017 REFERRING PHYSICIAN Yong Cuevas MD This is a two-dimensional echo with spectral Doppler, color-flow and M-mode. It was obtained in a patient with atrial fibrillation. This is a technically very difficult study and limited information and data were obtained from the study. Left atrium appears to be normal in dimension. Left ventricle end-diastolic dimension is normal. Left ventricle wall thickness is normal. LV systolic function is normal with ejection fraction of 54%. Right atrium is normal. Right ventricle is normal. The mitral valve was not visualized well. Aortic valve was not visualized. Tricuspid valve shows mild tricuspid regurgitation with mild pulmonary hypertension with estimated pulmonary artery systolic pressure of 39. Pulmonary valve was not visualized. There is no pericardial effusion. IMPRESSION 1. Technically difficult study. 2. Grossly normal LV systolic function with ejection fraction of 54%. 3. Mild tricuspid regurgitation with mild pulmonary hypertension with estimated pulmonary artery systolic pressure of 39. - EKG Interpretation EKG: sinus rhythm EKG shows: tachycardia EKG interpretations - EKG EKG results cardiology: sinus rhythm EKG shows: tachycardia Assessment and Plan - Assessment and Plan (1) Atrial fibrillation with RVR Status: Acute Increase Lovenox to 1mg/kg BID dose - Monitor HGB and platelets - Amiodarone 400mg po BID X7 days, then 200mg daily - Monitor LFTs - 2D echo, report pending, normal LV function per Dr. Jeff RESENDIZ pending, Mag 2.5 (2) Community acquired pneumonia Status: Acute per hospitalist team (3) Acute exacerbation of chronic obstructive airways disease Status: Acute per hospitalist team (4) Acute on chronic respiratory failure with hypercapnia Status: Acute per hospitalist team (5) Mixed hyperlipidemia Status: Chronic Patient reports an intolerance to Statin therapy (6) Type 2 diabetes mellitus without complications Status: Chronic per hospitalist service. (7) Obesity Status: Chronic - Assessment and Plan Aberrant AFib with RVR: Increase Lovenox to 1mg/kg BID dose - Monitor HGB and platelets - Amiodarone 400mg po BID X7 days, then 200mg daily - Monitor LFTs - 2D echo, report pending, normal LV function per Dr. Jeff RESENDIZ pending, Mag 2.5 Thank you for allowing us to participate in the care of this patient Hospital Course Summary Disclaimer: The visit summary below is not to be considered part of the above Progress Note. Hospital Course: 07/06 Admit, inpatient status under the hospitalist service. Consult Dr. Amado. Rocephin/azithromycin for CAP. Solu-Medrol 62.5 mg TID for COPD. Supportive care with DuoNeb, home inhalers, theophylline, BiPAP PRN. Home O2 6- 7L. Monitor blood sugars; resume home insulin. Resume lasix + KDur. I/O, daily weights. Monitor telemetry. Code status: DNI. Care to return to Dr Williamson at time of discharge from [facility]. 07/[address] Amado for pulmonary recommendations Continue with Rocephin/azithromycin for antimicrobial coverage of CAP. Remains on Bipap with schedule breathing treatments Continues on oral Lasix 80 milligrams daily, follow daily weights, monitor electrolytes Continue to monitor Accu-Cheks, continues on Lantus 15 units at bedtime, NovoLog with meals Evaluated by PT and OT today. Recommend home with assistance Overall improving <Malik Aguilar - Last Filed: 07/13/17 11:58> [facility] Patient Stated Medical History Chronic Obstructive Pulmonary Yes Disease (COPD) Diabetes Mellitus Type 2 Yes Gastroesophageal Reflux Yes Disease Hx Incontinence Yes Hx Urinary Tract Infection Yes Osteoarthritis Yes Depression Yes Clinic Medical History (Last Updated 07/06/17 @ 13:32 by Lanie Perry APRN) COPD (chronic obstructive pulmonary disease) (Acute Medical) Diabetes mellitus, type 2 (Acute Medical) GERD (gastroesophageal reflux disease) (Acute Medical) High cholesterol (Acute Medical) Exam Vital signs: Temperature 98.3 F 07/11/17 15:16 Pulse Rate 99 07/11/17 15:16 Respiratory Rate 24 07/11/17 15:39 Blood Pressure 134/86 07/11/17 15:16 Pulse Oximetry 95 07/11/17 15:39 Results 07/11/17 03:52 07/11/17 03:52 Assessment and Plan - Attestation Attestation Narrative: 07/13/17 11:58 Recommendation After examining the patient I agree with the above assessment. I am involved in the formulation of the patient's plan of care. - Assessment and Plan (1) Community acquired pneumonia Status: Acute (2) Acute exacerbation of chronic obstructive airways disease Status: Acute (3) Acute on chronic respiratory failure with hypercapnia Status: Acute (4) Atrial fibrillation with RVR Status: Acute (5) Mixed hyperlipidemia Status: Chronic (6) Type 2 diabetes mellitus without complications Status: Chronic (7) Obesity Status: Chronic Hospital Course Summary Disclaimer: The visit summary below is not to be considered part of the above Progress Note.
[2017-07-08] MEDS ORDERED: INHALER ASSIST DEVICE (Optichamber) MC ONE (11:13)
[2017-07-08] MEDS: CEFTRIAXONE 1 G in NS 100 ML IV SCH (11:14)
[2017-07-08] MEDS: INSULIN ASPART 100unit/ml INJECTION SQ PRN ×2 (11:16→15:21)
[2017-07-08] MEDS ORDERED: DiltiaZEM 25 MG/5 ML INJECTION IVP ONE (11:32)
[2017-07-08] MEDS ORDERED: ENOXAPARIN 40 MG/0.4 ML INJECTION SQ ONE (11:46)
[2017-07-08] MEDS: AZITHROMYCIN IV 500 MG in NS 250ml 250 ML IV SCH (12:29)
[2017-07-08] MEDS: PredniSONE 20 MG TABLET PO SCH (14:32)
[2017-07-08] MEDS: AMIODARONE 200 MG TABLET PO SCH ×2 (15:21→21:54)
--- NOTE | 2017-07-08 15:49 | Echocardiogram ---
DATE OF PROCEDURE July 08, 2017 REFERRING PHYSICIAN Yong Cuevas MD This is a two-dimensional echo with spectral Doppler, color-flow and M-mode. It was obtained in a patient with atrial fibrillation. This is a technically very difficult study and limited information and data were obtained from the study. Left atrium appears to be normal in dimension. Left ventricle end-diastolic dimension is normal. Left ventricle wall thickness is normal. LV systolic function is normal with ejection fraction of 54%. Right atrium is normal. Right ventricle is normal. The mitral valve was not visualized well. Aortic valve was not visualized. Tricuspid valve shows mild tricuspid regurgitation with mild pulmonary hypertension with estimated pulmonary artery systolic pressure of 39. Pulmonary valve was not visualized. There is no pericardial effusion. IMPRESSION 1. Technically difficult study. 2. Grossly normal LV systolic function with ejection fraction of 54%. 3. Mild tricuspid regurgitation with mild pulmonary hypertension with estimated pulmonary artery systolic pressure of 39. MTDD
[2017-07-08] MEDS: ENOXAPARIN 80 MG/0.8 ML INJECTION SQ SCH (21:54)
[2017-07-08] MEDS: INSULIN GLARGINE 100unit/ml INJECTION SQ SCH (21:54)
[2017-07-09] MEDS: ALBUTEROL/IPRATROPIUM 2.5mg-0.5mg/3ml NEB AEROSOL SCH ×4 (06:27→19:14)
[2017-07-09] MEDS: BUDESONIDE INH.SOLN 0.5mg/2ml NEB AEROSOL SCH ×2 (06:28→19:14)
--- NOTE | 2017-07-09 09:39 | Pulmonology Progress Note ---
Subjective Principal diagnosis: COPD exacerbation Interval history: Pt up to EOB, still requiring NIPPV here, was 82% on 7L HFNC. Does feel her breathing is doing better, minimal cough and sputum noted. Exam Vital signs: Temperature 97.5 F 07/09/17 07:31 Pulse Rate 86 07/09/17 07:56 Respiratory Rate 25 H 07/09/17 07:31 Blood Pressure 111/60 07/09/17 07:31 Pulse Oximetry 96 07/09/17 07:31 Inpatient Medications: Generic Name Dose Route Start Last Admin Trade Name Freq PRN Reason Stop Dose Admin Albuterol Sulfate 2 puff 07/08/17 11:09 Ventolin Hfa ORAL INH Q4HR PRN Shortness of air Albuterol/Ipratropium 3 ml 07/06/17 12:28 07/07/17 00:30 Duoneb AEROSOL 3 ml Q4H PRN Administration Shortness of air Albuterol/Ipratropium 3 ml 07/06/17 15:00 07/09/17 06:27 Duoneb AEROSOL 3 ml RTQID [facility] Administration Amiodarone HCl 400 mg 07/08/17 14:32 07/08/17 21:54 Pacerone PO 07/14/17 21:00 400 mg BID [facility] Administration Amiodarone HCl 200 mg 07/15/17 09:00 Pacerone PO DAILY [facility] Artificial Tears 1 drop 07/07/17 18:34 07/08/17 09:29 Refresh Classic EACH EYE 1 drop QID PRN Administration Dry eyes Aspirin 81 mg 07/07/17 09:00 07/08/17 09:26 Ecotrin PO 81 mg DAILY [facility] Administration Bisacodyl 10 mg 07/07/17 17:30 Dulcolax RECTALLY DAILY PRN Constipation Budesonide 0.5 mg 07/06/17 12:28 07/09/17 06:28 Pulmicort Inhalation AEROSOL 0.5 mg RTBID [facility] Administration Enoxaparin Sodium 80 mg 07/08/17 21:00 07/08/17 21:54 Lovenox SQ 80 mg BID [facility] Administration Fenofibric Acid 135 mg 07/07/17 09:00 07/08/17 09:27 Triplix PO 135 mg DAILY [facility] Administration Furosemide 80 mg 07/07/17 09:00 07/08/17 08:09 Lasix 80 Mg Tab PO 80 mg DAILY [facility] Administration Ceftriaxone Sodium 1 g/ Sodium 100 mls @ 200 mls/hr 07/06/17 11:16 07/08/17 11:40 Chloride IV Infused Q24H [facility] Infusion Azithromycin 500 mg/ Sodium 250 mls @ 167 mls/hr 07/06/17 12:28 07/08/17 14: 57 Chloride IV Infused Q24H [facility] Infusion Insulin Aspart 8 unit 07/07/17 08:00 07/08/17 09:25 Novolog SQ 8 unit 0800 [facility] Administration Insulin Aspart 13 unit 07/07/17 12:00 07/08/17 16:19 Novolog SQ Not Given 1200 [facility]N Insulin Aspart 10 unit 07/06/17 17:00 07/08/17 17:26 Novolog SQ 10 unit 1700 [facility] Administration Insulin Aspart 1 - 5 unit 07/06/17 16:43 07/08/17 15:21 Novolog SQ 1 unit SS PRN Administration Hyperglycemia Protocol Insulin Glargine 15 unit 07/06/17 21:00 07/08/17 21:54 Lantus SQ 15 unit HS [facility] Administration Lorazepam 0.5 mg 07/06/17 12:28 07/08/17 06:53 Ativan Inj IVP 0.5 mg Q4H PRN Administration Air hunger/Anxiety Lorazepam 1 mg 07/06/17 17:00 07/08/17 21:55 Ativan PO 1 mg QID [facility] Administration Magnesium Hydroxide 30 ml 07/07/17 17:30 Mom PO DAILY PRN Constipation Magnesium Oxide 400 mg 07/07/17 09:00 07/08/17 09:26 Magox PO 400 mg DAILY [facility] Administration Omeprazole 40 mg 07/07/17 09:00 07/08/17 11:42 Prilosec PO Not Given DAILY [facility] Polyethylene Glycol 17 gm 07/07/17 17:31 Miralax PO DAILY PRN Constipation Potassium Chloride 20 meq 07/08/17 12:00 07/08/17 17:26 K-Dur 20 Meq Tablet PO 20 meq TIDWM [facility] Administration Prednisone 40 mg 07/08/17 14:00 07/08/17 14:32 Deltasone 20 Mg PO 40 mg WB [facility] Administration Senna/Docusate Sodium 1 tab 07/07/17 17:31 Senna Plus Tablet PO BID PRN Constipation Sodium Chloride 10 - 80 ml 07/06/17 09:58 07/08/17 11:15 Iv Flush IVF 10 ml PRN PRN Administration Flushing Theophylline 300 mg 07/06/17 21:00 07/08/17 22:33 Elixophyllin PO 300 mg BID [facility] Administration Discontinued Medications Generic Name Dose Route Start Last Admin Trade Name Freq PRN Reason Stop Dose Admin Acetazolamide 500 mg 07/08/17 09:45 07/08/17 11:13 Diamox 500 Mg Sequels PO 07/08/17 09:46 500 mg O ONE Administration Albuterol/Ipratropium 3 ml 07/06/17 09:58 07/06/17 12:13 Duoneb IH 07/06/17 09:59 3 ml ONCE ONE Administration Diltiazem HCl 25 mg 07/08/17 11:32 07/08/17 12:17 Cardizem 25 Mg Inj IVP 07/08/17 11:33 25 mg O ONE Administration Enoxaparin Sodium 40 mg 07/06/17 12:28 07/08/17 09:26 Lovenox SQ 40 mg DAILY [facility] Administration Enoxaparin Sodium 40 mg 07/08/17 11:46 07/08/17 14:33 Lovenox SQ 07/08/17 11:47 40 mg O ONE Administration Insulin Aspart 13 unit 07/06/17 14:45 07/06/17 14:44 Novolog SQ 07/06/17 14:46 13 unit O ONE Administration Methylprednisolone Sodium Succinate 125 mg 07/06/17 09:58 07/06/17 11:48 Solu-Medrol IVP 07/06/17 09:59 Not Given O ONE Methylprednisolone Sodium Succinate 62.5 mg 07/06/17 17:00 07/08/17 09:25 Solu-Medrol IVP 62.5 mg Q8HR [facility] Administration Non-Formulary Medication 300 mg 07/06/17 21:00 Theophylline Anhydrous [Theophylline Anhydrous] PO BID [facility] Potassium Chloride 20 meq 07/06/17 17:30 07/08/17 09:26 K-Dur 20 Meq Tablet PO 20 meq [facility] Administration - Constitutional mild distress, obese, cooperative - Routine HEENT Exam Head: Present: normocephalic, atraumatic Eye: Present: EOMI, PERRL - Routine Neck Exam Present: supple, full ROM, trachea midline - Routine Respiratory Exam Present: decreased breath sounds, prolonged expiratory phase. Absent: patient mechanically ventilated - Routine Cardiovascular Exam Present: RRR, S1, S2, no murmur - Routine Abdominal Exam Present: soft, normoactive bowel sounds - Routine Extremities Exam Present: no edema, non tender, full ROM - Routine Back/Spine/Pelvis Exam Back/Spine: Present: full ROM - Routine Skin Exam Present: intact, dry - Routine Neurological Exam Present: alert, oriented X3, CN II-XII intact - Routine Psychiatric Exam Present: normal affect, normal thought process Results - Laboratory Findings Laboratory: Laboratory Results - last 48 hr 07/07/17 07/07/17 07/07/17 10:08 10:20 15:34 WBC RBC Hgb Hct MCV MCH MCHC RDW Std Deviation Plt Count MPV Immature Gran % (Auto) Neut % (Auto) Lymph % (Auto) [place] % (Auto) Eos % (Auto) Baso % (Auto) Neut # (Auto) Lymph # (Auto) [place] # (Auto) Eos # (Auto) Baso # (Auto) Abs Immat Gran (auto) Neutrophils % (Manual) Band Neutrophils % Lymphocytes % (Manual) Monocytes % (Manual) Neutrophils # (Manual) Band Neutrophils # Lymphocytes # (Manual) Monocytes # (Manual) RBC Morph Comment Turbidity Sodium Potassium Chloride Carbon Dioxide Anion Gap BUN Creatinine GFR Calculation BUN/Creatinine Ratio Glucose Glucometer 156 56 Calculated Osmolality Calcium Magnesium Total Bilirubin Icterus Index AST ALT Alkaline Phosphatase Total Protein Albumin Globulin Albumin/Globulin Ratio TSH Specimen Hemolysis Ur Collection Type Urine, cath straight Urine Color Yellow Urine Clarity Clear Urine pH 6.0 Ur Specific [place] <=1.005 L Urine Protein Negative Urine Glucose (UA) Negative Urine Ketones Negative Urine Occult Blood Trace-intact Urine Nitrate Negative Urine Bilirubin Negative Urine Urobilinogen 0.2 Ur Leukocyte Esterase Negative Urinalysis Comment Microscopic not ind. 07/07/17 07/07/17 07/07/17 15:54 17:50 19:52 WBC RBC Hgb Hct MCV MCH MCHC RDW Std Deviation Plt Count MPV Immature Gran % (Auto) Neut % (Auto) Lymph % (Auto) [place] % (Auto) Eos % (Auto) Baso % (Auto) Neut # (Auto) Lymph # (Auto) [place] # (Auto) Eos # (Auto) Baso # (Auto) Abs Immat Gran (auto) Neutrophils % (Manual) Band Neutrophils % Lymphocytes % (Manual) Monocytes % (Manual) Neutrophils # (Manual) Band Neutrophils # Lymphocytes # (Manual) Monocytes # (Manual) RBC Morph Comment Turbidity Sodium Potassium Chloride Carbon Dioxide Anion Gap BUN Creatinine GFR Calculation BUN/Creatinine Ratio Glucose Glucometer 86 141 116 Calculated Osmolality Calcium Magnesium Total Bilirubin Icterus Index AST ALT Alkaline Phosphatase Total Protein Albumin Globulin Albumin/Globulin Ratio TSH Specimen Hemolysis Ur Collection Type Urine Color Urine Clarity Urine pH Ur Specific [place] Urine Protein Urine Glucose (UA) Urine Ketones Urine Occult Blood Urine Nitrate Urine Bilirubin Urine Urobilinogen Ur Leukocyte Esterase Urinalysis Comment 07/08/17 07/08/17 07/08/17 04:03 04:04 04:04 WBC 14.0 H D RBC 4.48 Hgb 13.6 Hct 44.0 MCV 98.2 MCH 30.4 MCHC 30.9 L RDW Std Deviation 45.4 Plt Count 192 MPV 11.0 Immature Gran % (Auto) Not performed Neut % (Auto) Not performed Lymph % (Auto) Not performed [place] % (Auto) Not performed Eos % (Auto) Not performed Baso % (Auto) Not performed Neut # (Auto) Not performed Lymph # (Auto) Not performed [place] # (Auto) Not performed Eos # (Auto) Not performed Baso # (Auto) Not performed Abs Immat Gran (auto) Not performed Neutrophils % (Manual) 93.0 H Band Neutrophils % 1.0 Lymphocytes % (Manual) 6.0 L Monocytes % (Manual) Neutrophils # (Manual) 13.0 H Band Neutrophils # 0.1 Lymphocytes # (Manual) 0.8 L Monocytes # (Manual) RBC Morph Comment Normal Turbidity < 20 Sodium 144 Potassium 4.9 Chloride 97 L Carbon Dioxide 41 H* Anion Gap 6 BUN 21.0 H Creatinine 0.7 GFR Calculation 84 BUN/Creatinine Ratio 30 H Glucose 142 H Glucometer Calculated Osmolality 282 H Calcium 9.6 Magnesium 2.5 H Total Bilirubin Icterus Index < 2 AST ALT Alkaline Phosphatase Total Protein Albumin Globulin Albumin/Globulin Ratio TSH 0.14 L Specimen Hemolysis < 15 Ur Collection Type Urine Color Urine Clarity Urine pH Ur Specific [place] Urine Protein Urine Glucose (UA) Urine Ketones Urine Occult Blood Urine Nitrate Urine Bilirubin Urine Urobilinogen Ur Leukocyte Esterase Urinalysis Comment 07/08/17 07/08/17 07/08/17 06:08 10:05 15:06 WBC RBC Hgb Hct MCV MCH MCHC RDW Std Deviation Plt Count MPV Immature Gran % (Auto) Neut % (Auto) Lymph % (Auto) [place] % (Auto) Eos % (Auto) Baso % (Auto) Neut # (Auto) Lymph # (Auto) [place] # (Auto) Eos # (Auto) Baso # (Auto) Abs Immat Gran (auto) Neutrophils % (Manual) Band Neutrophils % Lymphocytes % (Manual) Monocytes % (Manual) Neutrophils # (Manual) Band Neutrophils # Lymphocytes # (Manual) Monocytes # (Manual) RBC Morph Comment Turbidity Sodium Potassium Chloride Carbon Dioxide Anion Gap BUN Creatinine GFR Calculation BUN/Creatinine Ratio Glucose Glucometer 143 297 164 Calculated Osmolality Calcium Magnesium Total Bilirubin Icterus Index AST ALT Alkaline Phosphatase Total Protein Albumin Globulin Albumin/Globulin Ratio TSH Specimen Hemolysis Ur Collection Type Urine Color Urine Clarity Urine pH Ur Specific [place] Urine Protein Urine Glucose (UA) Urine Ketones Urine Occult Blood Urine Nitrate Urine Bilirubin Urine Urobilinogen Ur Leukocyte Esterase Urinalysis Comment 07/08/17 07/09/17 07/09/17 20:42 04:05 04:05 WBC 15.4 H RBC 4.45 Hgb 13.5 Hct 43.9 MCV 98.7 MCH 30.3 MCHC 30.8 L RDW Std Deviation 45.6 Plt Count 199 MPV 11.4 Immature Gran % (Auto) Neut % (Auto) Lymph % (Auto) [place] % (Auto) Eos % (Auto) Baso % (Auto) Neut # (Auto) Lymph # (Auto) [place] # (Auto) Eos # (Auto) Baso # (Auto) Abs Immat Gran (auto) Neutrophils % (Manual) 83.0 H Band Neutrophils % 4.0 Lymphocytes % (Manual) 8.0 L Monocytes % (Manual) 5.0 Neutrophils # (Manual) 12.8 H Band Neutrophils # 0.6 Lymphocytes # (Manual) 1.2 Monocytes # (Manual) 0.8 RBC Morph Comment Normal Turbidity < 20 Sodium 143 Potassium 3.7 D Chloride 94 L Carbon Dioxide 40 H Anion Gap 9 BUN 19.0 H Creatinine 1.0 D GFR Calculation 56 BUN/Creatinine Ratio 19 Glucose 123 H Glucometer 147 Calculated Osmolality 278 Calcium 9.2 Magnesium 2.5 H Total Bilirubin 0.50 Icterus Index < 2 AST 25 ALT 18 Alkaline Phosphatase 51 Total Protein 5.8 L Albumin 3.5 Globulin 2.3 L Albumin/Globulin Ratio 1.5 TSH Specimen Hemolysis < 15 Ur Collection Type Urine Color Urine Clarity Urine pH Ur Specific [place] Urine Protein Urine Glucose (UA) Urine Ketones Urine Occult Blood Urine Nitrate Urine Bilirubin Urine Urobilinogen Ur Leukocyte Esterase Urinalysis Comment Assessment and Plan - Assessment and Plan Acute on Chronic Hypercapnic Respiratory Failure Severe COPD GOLD stage D (symbicort, spiriva, A/A at home) Syncope - likely 2/2 arrhythmia Obesity Anxiety Mild PHTN PAP 39 Plan: Pt currentlt on Bipap f12, 18/5, Vt 500 and tolerating well. Will switch her to a home [id number] with AVAPS-AE as she failed bipap ST with PCo2 100. Home vent to mask is indicated due to severe COPD with recurrent acute exacerbations of chronic hypercapnic respiratory failure. Use of the home vent to mask will reduced exacerbations, hospitalizations, disability and . Currently on Bt' s with pulmicort BID and A/A QID and prednisone 40mg. Does complain of anxiety, on ativan QID. Per cardiology the nonsustained VT was Aberrant Afib w/RVR on amiodarone now, follow closely, CXR in am. - Time Spent With Patient Total time spent is greater than 50% in coordination of care (as documented) at patient's floor/unit and/or counseling patient: less than 15 minutes
[2017-07-09] MEDS: INSULIN ASPART 100unit/ml INJECTION SQ SCH ×3 (09:54→17:37)
[2017-07-09] MEDS: LORazepam 1 MG TABLET PO SCH ×4 (09:54→20:31)
[2017-07-09] MEDS: PredniSONE 20 MG TABLET PO SCH (09:55)
[2017-07-09] MEDS: ASPIRIN *EC* 81 MG TABLET PO SCH (09:56)
[2017-07-09] MEDS: AMIODARONE 200 MG TABLET PO SCH ×2 (09:56→10:00)
[2017-07-09] MEDS: ENOXAPARIN 80 MG/0.8 ML INJECTION SQ SCH (09:56)
[2017-07-09] MEDS: FUROSEMIDE 80 MG TABLET PO SCH (09:57)
[2017-07-09] MEDS: THEOPHYLLINE 80 MG/15 ML PO SCH ×2 (09:57→21:14)
[2017-07-09] MEDS: MAGNESIUM OXIDE 400 MG TABLET PO SCH (09:57)
[2017-07-09] MEDS: OMEPRAZOLE 20 MG CAPSULE PO SCH (09:57)
[2017-07-09] MEDS: APIXABAN 5 MG TABLET PO SCH ×2 (10:08→20:32)
--- NOTE | 2017-07-09 10:12 | Cardiology Progress Note ---
<Rosalia Keller M - Last Filed: 07/09/17 14:48> Subjective Principal diagnosis: COPD exacerbation Interval history: Allyson is seen in follow up for AFib. She is in bed, on Bi-pap, has many questions about her new diagnosis; I answered all questions. She denies chest pain, pressure, or palpitations. Exam Vital signs: Temperature 97.5 F 07/09/17 07:31 Pulse Rate 86 07/09/17 07:56 Respiratory Rate 33 H 07/09/17 09:54 Blood Pressure 111/60 07/09/17 07:31 Pulse Oximetry 96 07/09/17 07:31 Inpatient Medications: Generic Name Dose Route Start Last Admin Trade Name Freq PRN Reason Stop Dose Admin Albuterol Sulfate 2 puff 07/08/17 11:09 Ventolin Hfa ORAL INH Q4HR PRN Shortness of air Albuterol/Ipratropium 3 ml 07/06/17 12:28 07/07/17 00:30 Duoneb AEROSOL 3 ml Q4H PRN Administration Shortness of air Albuterol/Ipratropium 3 ml 07/06/17 15:00 07/09/17 06:27 Duoneb AEROSOL 3 ml RTQID [facility] Administration Apixaban 5 mg 07/09/17 10:01 Eliquis PO BID [facility] Artificial Tears 1 drop 07/07/17 18:34 07/08/17 09:29 Refresh Classic EACH EYE 1 drop QID PRN Administration Dry eyes Bisacodyl 10 mg 07/07/17 17:30 Dulcolax RECTALLY DAILY PRN Constipation Budesonide 0.5 mg 07/06/17 12:28 07/09/17 06:28 Pulmicort Inhalation AEROSOL 0.5 mg RTBID [facility] Administration Fenofibric Acid 135 mg 07/07/17 09:00 07/09/17 09:56 Triplix PO 135 mg DAILY [facility] Administration Flecainide Acetate 50 mg 07/09/17 09:59 Tambocor PO BID [facility] Furosemide 80 mg 07/07/17 09:00 07/09/17 09:57 Lasix 80 Mg Tab PO 80 mg DAILY [facility] Administration Ceftriaxone Sodium 1 g/ Sodium 100 mls @ 200 mls/hr 07/06/17 11:16 07/08/17 11:40 Chloride IV Infused Q24H [facility] Infusion Azithromycin 500 mg/ Sodium 250 mls @ 167 mls/hr 07/06/17 12:28 07/08/17 14: 57 Chloride IV Infused Q24H [facility] Infusion Insulin Aspart 8 unit 07/07/17 08:00 07/09/17 09:54 Novolog SQ 8 unit 0800 [facility] Administration Insulin Aspart 13 unit 07/07/17 12:00 07/08/17 16:19 Novolog SQ Not Given 1200 [facility] Insulin Aspart 10 unit 07/06/17 17:00 07/08/17 17:26 Novolog SQ 10 unit 1700 [facility] Administration Insulin Aspart 1 - 5 unit 07/06/17 16:43 07/08/17 15:21 Novolog SQ 1 unit SS PRN Administration Hyperglycemia Protocol Insulin Glargine 15 unit 07/06/17 21:00 07/08/17 21:54 Lantus SQ 15 unit HS [facility] Administration Lorazepam 0.5 mg 07/06/17 12:28 07/08/17 06:53 Ativan Inj IVP 0.5 mg Q4H PRN Administration Air hunger/Anxiety Lorazepam 1 mg 07/06/17 17:00 07/09/17 09:54 Ativan PO 1 mg QID [facility] Administration Magnesium Hydroxide 30 ml 07/07/17 17:30 Mom PO DAILY PRN Constipation Magnesium Oxide 400 mg 07/07/17 09:00 07/09/17 09:57 Magox PO 400 mg DAILY [facility] Administration Omeprazole 40 mg 07/07/17 09:00 07/09/17 09:57 Prilosec PO 40 mg DAILY [facility] Administration Polyethylene Glycol 17 gm 07/07/17 17:31 Miralax PO DAILY PRN Constipation Potassium Chloride 20 meq 07/08/17 12:00 07/09/17 09:55 K-Dur 20 Meq Tablet PO 20 meq TIDWM [facility] Administration Prednisone 40 mg 07/08/17 14:00 07/09/17 09:55 Deltasone 20 Mg PO 40 mg WB [facility] Administration Senna/Docusate Sodium 1 tab 07/07/17 17:31 Senna Plus Tablet PO BID PRN Constipation Sodium Chloride 10 - 80 ml 07/06/17 09:58 07/08/17 11:15 Iv Flush IVF 10 ml PRN PRN Administration Flushing Theophylline 300 mg 07/06/17 21:00 07/09/17 09:57 Elixophyllin PO 300 mg BID [facility] Administration Discontinued Medications Generic Name Dose Route Start Last Admin Trade Name Nickie PRN Reason Stop Dose Admin Acetazolamide 500 mg 07/08/17 09:45 07/08/17 11:13 Diamox 500 Mg Sequels PO 07/08/17 09:46 500 mg O ONE Administration Albuterol/Ipratropium 3 ml 07/06/17 09:58 07/06/17 12:13 Duoneb IH 07/06/17 09:59 3 ml ONCE ONE Administration Amiodarone HCl 400 mg 07/08/17 14:32 07/09/17 10:00 Pacerone PO 07/14/17 21:00 Not Given BID [facility] Amiodarone HCl 200 mg 07/15/17 09:00 Pacerone PO DAILY [facility] Aspirin 81 mg 07/07/17 09:00 07/09/17 09:56 Ecotrin PO 81 mg DAILY [facility] Administration Diltiazem HCl 25 mg 07/08/17 11:32 07/08/17 12:17 Cardizem 25 Mg Inj IVP 07/08/17 11:33 25 mg O ONE Administration Enoxaparin Sodium 40 mg 07/06/17 12:28 07/08/17 09:26 Lovenox SQ 40 mg DAILY [facility] Administration Enoxaparin Sodium 40 mg 07/08/17 11:46 07/08/17 14:33 Lovenox SQ 07/08/17 11:47 40 mg O ONE Administration Enoxaparin Sodium 80 mg 07/08/17 21:00 07/09/17 09:56 Lovenox SQ 80 mg BID [facility] Administration Insulin Aspart 13 unit 07/06/17 14:45 07/06/17 14:44 Novolog SQ 07/06/17 14:46 13 unit O ONE Administration Methylprednisolone Sodium Succinate 125 mg 07/06/17 09:58 07/06/17 11:48 Solu-Medrol IVP 07/06/17 09:59 Not Given O ONE Methylprednisolone Sodium Succinate 62.5 mg 07/06/17 17:00 07/08/17 09:25 Solu-Medrol IVP 62.5 mg Q8HR [facility] Administration Non-Formulary Medication 300 mg 07/06/17 21:00 Theophylline Anhydrous [Theophylline Anhydrous] PO BID [facility] Potassium Chloride 20 meq 07/06/17 17:30 07/08/17 09:26 K-Dur 20 Meq Tablet PO 20 meq [facility] Administration - Constitutional mild distress, well nourished, cooperative - Routine HEENT Exam Head: Present: normocephalic ENT: Present: mucous membranes dry - Routine Neck Exam Absent: JVD, carotid bruit - Routine Chest/Breast/Axilla Exam Chest wall: Absent: tenderness - Routine Respiratory Exam Present: dyspnea, decreased breath sounds - Routine Cardiovascular Exam Present: RRR, no murmur. Absent: JVD - Routine Abdominal Exam Present: soft, non tender - Routine Extremities Exam Present: no edema - Routine Skin Exam Present: intact, dry, warm - Routine Neurological Exam Present: alert, oriented X3 - Routine Psychiatric Exam Present: normal affect, normal thought process Results 07/09/17 04:05 07/09/17 04:05 Cardiac Enzymes 07/09/17 Range/Units 04:05 AST 25 (14-36) U/L CBC 07/09/17 Range/Units 04:05 WBC 15.4 H (4.5-11.0) T/MM3 RBC 4.45 (4.00-5.20) M/MM3 Hgb 13.5 (12-16) GM/DL Hct 43.9 (36-46) % Plt Count 199 (130-400) T/MM3 Comprehensive Metabolic Panel 07/09/17 Range/Units 04:05 Sodium 143 (134-144) MEQ/L Potassium 3.7 D (3.6-5) MEQ/L Chloride 94 L (98-107) MEQ/L Carbon Dioxide 40 H (22-30) MEQ/L BUN 19.0 H (7-17) MG/DL Creatinine 1.0 D (0.7-1.2) mg/dL Glucose 123 H (65-110) MG/DL Calcium 9.2 (8.4-10.2) MG/DL AST 25 (14-36) U/L ALT 18 (1-35) U/L Alkaline Phosphatase 51 (38-126) U/L Total Protein 5.8 L (6.3-8.2) g/dL Albumin 3.5 (3.5-5.0) g/dL Intake and Output 07/08/17 07/09/17 07/09/17 22:59 06:59 14:59 Intake Total 300 / 300 Output Total 100 / 100 200 / 200 Balance 200 / 200 -200 / -200 Intake: Oral 300 / 300 Output: Urine 100 / 100 200 / 200 Other: Urine Appearance Clear Clear Urine Color Yellow Yellow Weight 170 lb 13.732 oz Patient Weight 07/10/17 06:59 Weight 170 lb 13.732 oz - Imaging and Cardiology Imaging & Cardiology Narrative: Date of Exam: 07/08/17 Type of Exam(s): US echo doppler complete DATE OF PROCEDURE July 08, 2017 REFERRING PHYSICIAN Yong Cuevas MD This is a two-dimensional echo with spectral Doppler, color-flow and M-mode. It was obtained in a patient with atrial fibrillation. This is a technically very difficult study and limited information and data were obtained from the study. Left atrium appears to be normal in dimension. Left ventricle end-diastolic dimension is normal. Left ventricle wall thickness is normal. LV systolic function is normal with ejection fraction of 54%. Right atrium is normal. Right ventricle is normal. The mitral valve was not visualized well. Aortic valve was not visualized. Tricuspid valve shows mild tricuspid regurgitation with mild pulmonary hypertension with estimated pulmonary artery systolic pressure of 39. Pulmonary valve was not visualized. There is no pericardial effusion. IMPRESSION 1. Technically difficult study. 2. Grossly normal LV systolic function with ejection fraction of 54%. 3. Mild tricuspid regurgitation with mild pulmonary hypertension with estimated pulmonary artery systolic pressure of 39. 07/09/17 10:06 Assessment and Plan - Assessment and Plan (1) Atrial fibrillation with RVR Status: Acute (2) Community acquired pneumonia Status: Acute (3) Acute exacerbation of chronic obstructive airways disease Status: Acute (4) Acute on chronic respiratory failure with hypercapnia Status: Acute (5) Mixed hyperlipidemia Status: Chronic (6) Type 2 diabetes mellitus without complications Status: Chronic (7) Obesity Status: Chronic - Assessment and Plan 07/08/17 Atrial fibrillation with RVR Current visit: Yes Status: Acute Increase Lovenox to 1mg/kg BID dose - Monitor HGB and platelets - Amiodarone 400mg po BID X7 days, then 200mg daily - Monitor LFTs - 2D echo, report pending, normal LV function per Dr. Aguilar - TSH pending, Mag 2.5 Community acquired pneumonia Current visit: Yes Status: Acute per hospitalist team Acute exacerbation of chronic obstructive airways disease Current visit: Yes Status: Acute per hospitalist team Acute on chronic respiratory failure with hypercapnia Current visit: Yes Status: Acute per hospitalist team Obesity Current visit: Yes Status: Chronic Mixed hyperlipidemia Current visit: Yes Status: Chronic Patient reports an intolerance to Statin therapy Type 2 diabetes mellitus without complications Current visit: Yes Status: Chronic per hospitalist service. Thank you for allowing us to participate in the care of this patient. 07/09/17 Change Lovenox to Eliquis 5mg po BID - Stop Aspirin - Stop Amiodarone and change to Flecainide 50mg BID - EKG in AM Hospital Course Summary Disclaimer: The visit summary below is not to be considered part of the above Progress Note. Hospital Course: 07/06 Admit, inpatient status under the hospitalist service. Consult Dr. Amado. Rocephin/azithromycin for CAP. Solu-Medrol 62.5 mg TID for COPD. Supportive care with DuoNeb, home inhalers, theophylline, BiPAP PRN. Home O2 6- 7L. Monitor blood sugars; resume home insulin. Resume lasix + KDur. I/O, daily weights. Monitor telemetry. Code status: DNI. Care to return to Dr Williamson at time of discharge from [facility] [place]. 07/[address] Amado for pulmonary recommendations Continue with Rocephin/azithromycin for antimicrobial coverage of CAP. Remains on Bipap with schedule breathing treatments Continues on oral Lasix 80 milligrams daily, follow daily weights, monitor electrolytes Continue to monitor Accu-Cheks, continues on Lantus 15 units at bedtime, NovoLog with meals Evaluated by PT and OT today. Recommend home with assistance Overall improving <Malik Aguilar - Last Filed: 07/14/17 09:42> Exam Vital signs: Temperature 98.3 F 07/11/17 15:16 Pulse Rate 99 07/11/17 15:16 Respiratory Rate 24 07/11/17 15:39 Blood Pressure 134/86 07/11/17 15:16 Pulse Oximetry 95 07/11/17 15:39 Inpatient Medications: Discontinued Medications Generic Name Dose Route Start Last Admin Trade Name Freq PRN Reason Stop Dose Admin Acetazolamide 500 mg 07/08/17 09:45 07/08/17 11:13 Diamox 500 Mg Sequels PO 07/08/17 09:46 500 mg O ONE Administration Albuterol Sulfate 2 puff 07/08/17 11:09 Ventolin Hfa ORAL INH Q4HR PRN Shortness of air Albuterol/Ipratropium 3 ml 07/06/17 09:58 07/06/17 12:13 Duoneb IH 07/06/17 09:59 3 ml ONCE ONE Administration Albuterol/Ipratropium 3 ml 07/06/17 12:28 07/07/17 00:30 Duoneb AEROSOL 3 ml Q4H PRN Administration Shortness of air Albuterol/Ipratropium 3 ml 07/06/17 15:00 07/11/17 15:29 Duoneb AEROSOL 3 ml RTQID [facility] Administration Amiodarone HCl 400 mg 07/08/17 14:32 07/09/17 10:00 Pacerone PO 07/14/17 21:00 Not Given BID [facility] Amiodarone HCl 200 mg 07/15/17 09:00 Pacerone PO DAILY [facility] Apixaban 5 mg 07/09/17 10:01 07/11/17 08:54 Eliquis PO 5 mg BID [facility] Administration Artificial Tears 1 drop 07/07/17 18:34 07/09/17 17:17 Refresh Classic EACH EYE 1 drop QID PRN Administration Dry eyes Aspirin 81 mg 07/07/17 09:00 07/09/17 09:56 Ecotrin PO 81 mg DAILY [facility] Administration Bisacodyl 10 mg 07/07/17 17:30 07/09/17 11:06 Dulcolax RECTALLY 10 mg DAILY PRN Administration Constipation Budesonide 0.5 mg 07/06/17 12:28 07/10/17 06:20 Pulmicort Inhalation AEROSOL 0.5 mg RTBID [facility] Administration Diltiazem HCl 25 mg 07/08/17 11:32 07/08/17 12:17 Cardizem 25 Mg Inj IVP 07/08/17 11:33 25 mg O ONE Administration Enoxaparin Sodium 40 mg 07/06/17 12:28 07/08/17 09:26 Lovenox SQ 40 mg DAILY [facility] Administration Enoxaparin Sodium 40 mg 07/08/17 11:46 07/08/17 14:33 Lovenox SQ 07/08/17 11:47 40 mg O ONE Administration Enoxaparin Sodium 80 mg 07/08/17 21:00 07/09/17 09:56 Lovenox SQ 80 mg BID [facility] Administration Fenofibric Acid 135 mg 07/07/17 09:00 07/11/17 08:53 Triplix PO 135 mg DAILY [facility] Administration Flecainide Acetate 50 mg 07/09/17 09:59 07/11/17 08:55 Tambocor PO 50 mg BID [facility] Administration Furosemide 80 mg 07/07/17 09:00 07/11/17 08:53 Lasix 80 Mg Tab PO 80 mg DAILY [facility] Administration Ceftriaxone Sodium 1 g/ Sodium 100 mls @ 200 mls/hr 07/06/17 11:16 07/11/17 14:18 Chloride IV Infused Q24H [facility] Infusion Azithromycin 500 mg/ Sodium 250 mls @ 167 mls/hr 07/06/17 12:28 07/08/17 14: 57 Chloride IV Infused Q24H [facility] Infusion Insulin Aspart 8 unit 07/07/17 08:00 07/11/17 09:03 Novolog SQ 8 unit 0800 [facility] Administration Insulin Aspart 13 unit 07/07/17 12:00 07/10/17 12:17 Novolog SQ 13 unit 1200 [facility] Administration Insulin Aspart 10 unit 07/06/17 17:00 07/10/17 18:24 Novolog SQ Not Given 1700 [facility] Insulin Aspart 13 unit 07/06/17 14:45 07/06/17 14:44 Novolog SQ 07/06/17 14:46 13 unit O ONE Administration Insulin Aspart 1 - 5 unit 07/06/17 16:43 07/11/17 16:24 Novolog SQ 1 unit SS PRN Administration Hyperglycemia Protocol Insulin Aspart 8 unit 07/10/17 17:23 07/11/17 13:05 Novolog SQ 8 unit 1200 [facility] Administration Insulin Aspart 8 unit 07/10/17 17:30 07/10/17 18:25 Novolog SQ 8 unit 1700 [facility] Administration Insulin Glargine 15 unit 07/06/17 21:00 07/09/17 20:33 Lantus SQ 15 unit HS [facility] Administration Insulin Glargine 10 unit 07/10/17 17:30 07/10/17 20:32 Lantus SQ 10 unit HS [facility] Administration Lorazepam 0.5 mg 07/06/17 12:28 07/11/17 11:06 Ativan Inj IVP 0.5 mg Q4H PRN Administration Air hunger/Anxiety Lorazepam 1 mg 07/06/17 17:00 07/11/17 13:04 Ativan PO 1 mg QID [facility] Administration Magnesium Hydroxide 30 ml 07/07/17 17:30 Mom PO DAILY PRN Constipation Magnesium Oxide 400 mg 07/07/17 09:00 07/11/17 08:53 Magox PO 400 mg DAILY [facility] Administration Methylprednisolone Sodium Succinate 125 mg 07/06/17 09:58 07/06/17 11:48 Solu-Medrol IVP 07/06/17 09:59 Not Given O ONE Methylprednisolone Sodium Succinate 62.5 mg 07/06/17 17:00 07/08/17 09:25 Solu-Medrol IVP 62.5 mg Q8HR [facility] Administration Non-Formulary Medication 300 mg 07/06/17 21:00 Theophylline Anhydrous [Theophylline Anhydrous] PO BID [facility] Nystatin 5 ml 07/09/17 21:00 Mycostatin PO 07/19/17 20:59 QID [facility] Nystatin 5 ml 07/09/17 17:33 07/11/17 13:04 Mycostatin PO 07/19/17 17:32 5 ml QID [facility] Administration Omeprazole 40 mg 07/07/17 09:00 07/11/17 08:53 Prilosec PO 40 mg DAILY [facility] Administration Polyethyl Glycol/Propylene Glycol 1 drop 07/10/17 17:02 Systane Eye Drops EACH EYE PRN PRN Polyethylene Glycol 17 gm 07/07/17 17:31 Miralax PO DAILY PRN Constipation Polyethylene Glycol 17 gm 07/10/17 17:00 07/11/17 09:02 Miralax PO 17 gm DAILY [facility] Administration Potassium Chloride 20 meq 07/06/17 17:30 07/08/17 09:26 K-Dur 20 Meq Tablet PO 20 meq [facility] Administration Potassium Chloride 20 meq 07/08/17 12:00 07/09/17 09:55 K-Dur 20 Meq Tablet PO 20 meq TIDWM [facility] Administration Potassium Chloride 20 meq 07/09/17 12:00 07/11/17 13:04 K-Dur 20 Meq Tablet PO 20 meq [facility] Administration Prednisone 40 mg 07/08/17 14:00 07/11/17 08:53 Deltasone 20 Mg PO 40 mg WB [facility] Administration Senna/Docusate Sodium 1 tab 07/07/17 17:31 Senna Plus Tablet PO BID PRN Constipation Senna/Docusate Sodium 2 tab 07/10/17 17:03 Senna Plus Tablet PO BID PRN Constipation Sodium Chloride 10 - 80 ml 07/06/17 09:58 07/10/17 15:20 Iv Flush IVF 10 ml PRN PRN Administration Flushing Theophylline 300 mg 07/06/17 21:00 07/11/17 09:02 Elixophyllin PO 300 mg BID [facility] Administration Results 07/11/17 03:52 07/11/17 03:52 Assessment and Plan - Assessment and Plan (1) Community acquired pneumonia Status: Acute (2) Acute exacerbation of chronic obstructive airways disease Status: Acute (3) Acute on chronic respiratory failure with hypercapnia Status: Acute (4) Atrial fibrillation with RVR Status: Acute (5) Mixed hyperlipidemia Status: Chronic (6) Type 2 diabetes mellitus without complications Status: Chronic (7) Obesity Status: Chronic - Attestation Attestation Narrative: 07/14/17 09:42 Recommendation After examining the patient I agree with the above assessment. I am involved in the formulation of the patient's plan of care. Hospital Course Summary Disclaimer: The visit summary below is not to be considered part of the above Progress Note.
--- NOTE | 2017-07-09 10:41 | Progress Note ---
- Date 07/09/17 Subjective: Allyson states that her breathing is pretty much back to normal. She denies any panic attacks today, and believes that her tachycardia yesterday was all attributable to anxiety. As long as she takes her regularly scheduled Ativan, her anxiety is typically under good control. She denies any chest pain or palpitations. She's been declining acapella b/c she has difficulty timing her breaths. She denies any abdominal pain or nausea. She asks if she can go home today - however she will need a trilogy to ensure safe discharge. Objective Vital signs: Temperature 97.5 F 07/09/17 07:31 Pulse Rate 86 07/09/17 07:56 Respiratory Rate 33 H 07/09/17 09:54 Blood Pressure 111/60 07/09/17 07:31 Pulse Oximetry 96 07/09/17 07:31 Height/Weight/BMI: Height 1.55 m Weight 77.5 kg Body Mass Index 32.8 - Constitutional Present: no acute distress, well nourished, well developed, obese - Routine HEENT Exam Head: Present: normocephalic Eye: Present: PERRL. Absent: conjunctival icterus - Routine Respiratory Exam Present: decreased breath sounds, prolonged expiratory phase - Routine Cardiovascular Exam Present: RRR, S1, S2 - Routine Abdominal Exam Present: soft, normoactive bowel sounds, non distended, non tender - Routine Extremities Exam Present: no edema, pulses intact - Routine Skin Exam Present: intact, dry, warm - Routine Neurological Exam Present: alert, oriented X3, normal speech - Routine Psychiatric Exam Present: normal affect, normal thought process, cooperative Results - Labs CBC & Chem 7: 07/09/17 04:05 07/09/17 04:05 Assessment and Plan (1) Community acquired pneumonia Current visit: Yes Status: Acute (2) Acute exacerbation of chronic obstructive airways disease Current visit: Yes Status: Acute Assessment and Plan: Assessment Acute on chronic hypercapnic/hypoxic resp failure with resp acidosis PAF CAP COPD with exac. CO2 Narcosis Sinus tachycardia Nonsustained VTAC - ruled out by cardiology, RLL 07/09/17 Anxiety DM2, insulin dependent Dyslipidemia GERD Mild CHF per hx Obesity Plan Pulm service working on getting her a home vent to mask. Continue lorazepam for anxiety. Continue supportive care with DuoNeb, Pulmicort, and prednisone. Acapella changed to PRN d/t pt preference. HR improved today; currently in sinus - on 07/08, cardiology started amiodarone 400 mg twice a day for 7 days, and then decrease to 200 mg daily. Echocardiogram showed an EF of 55%, mild tricuspid regurgitation and mild pulmonary hypertension. She was started on Eliquis 5 mg BID for anticoagulation. Cont Rocephin for CAP. Will dc azithromycin d/t risk of QT prolongation while on amiodarone. Leukocytosis most likely steroid effect. TSH was low at 0.14; free T4 pending. DVT Prophylaxis: Eliquis GI Prophylaxis: Omeprazole Resuscitation Status: Do Not Intubate - Physician Narrative Physician: Danita Barrios MD Narrative: Date: 07/09/17 Time: 1724 I have independently evaluated and examined this patient. I reviewed the chart, the patient's history, and the MAINTENANCE ADVISOR/PA's documented findings as above. We discussed and formulated the assessment and plan as above with additions as below: Mrs. Salgado reports her breathing is close to baseline with minimal activity at home (uses a wheelchair to get from room to room normally), she denies cough or sputum production and is not having fever. Nursing reports significant desaturation into the low 80s with minimal activity. Late this afternoon the patient described some sore throat and decreased vision since hospitalization. Nasal BiPAP on when seen, fluent speech, patient alert; respirations nonlabored with decreased airflow throughout, no extra breath sounds present but minimal airflow audible Regular rhythm on exam today and telemetry strips with sinus rhythm/sinus tachycardia and occasional PVCs by my review. Medication changes initiated by cardiology noted; discussed with pulmonary- Trilogy paperwork initiated, discussed with case management. Chest x-ray in a.m. on flecainide. Nystatin suspension initiated for sore throat given recent antibiotics/steroids. Chest x-ray yesterday reviewed by myself revealing COPD/hyperinflated lung hensley, blunting of the angles bilaterally, I don't see discrete infiltrates although radiology reports increased lower lobe airspace disease bilaterally. Hospital Course Summary Disclaimer: The visit summary below is not to be considered part of the above Progress Note. Hospital Course: 07/06 Admit, inpatient status under the hospitalist service. Consult Dr. Amaod. Rocephin/azithromycin for CAP. Solu-Medrol 62.5 mg TID for COPD. Supportive care with DuoNeb, home inhalers, theophylline, BiPAP PRN. Home O2 6- 7L. Monitor blood sugars; resume home insulin. Resume lasix + KDur. I/O, daily weights. Monitor telemetry. Code status: DNI. Care to return to Dr Williamson at time of discharge from [facility] [place]. 07/[address] Amado for pulmonary recommendations Continue with Rocephin/azithromycin for antimicrobial coverage of CAP. Remains on Bipap with schedule breathing treatments Continues on oral Lasix 80 milligrams daily, follow daily weights, monitor electrolytes Continue to monitor Accu-Cheks, continues on Lantus 15 units at bedtime, NovoLog with meals Evaluated by PT and OT today. Recommend home with assistance 07/08 Sinus tach 120-140 this am. Highly anxious despite being on lorazepam 1 mg PO QID + PRN lorazepam IV (1 daily PRN dose). CTA chest done on 07/06 was neg for PE. A-fib with aberrancy. Consult Dr. Aguilar and order echo. Solu-Medrol converted to Prednisone. Dr. Amado recommending home vent to mask. Continue abx for CAP. CXR reviewed - b/l lower lobe pneumonia. Labs -CO2 up to 41 and Diamox ordered. -leukocytosis - likely r/t steroids -K 4.9 - decrease KDur from QID to TID. Cont Lasix. creatinine 0.7. -hyperglycemia after breakfast this am with sugar of 297 - cont insulin. 07/09 Pulm service working on getting her a home vent to mask. Continue lorazepam for anxiety. Continue supportive care with DuoNeb, Pulmicort, and prednisone. Acapella changed to PRN d/t pt preference. HR improved today; currently in sinus - on 07/08, cardiology started amiodarone 400 mg twice a day for 7 days, and then decrease to 200 mg daily. Echocardiogram showed an EF of 55%, mild tricuspid regurgitation and mild pulmonary hypertension. She was started on Eliquis 5 mg BID for anticoagulation. Cont Rocephin for CAP. Will dc azithromycin d/t risk of QT prolongation while on amiodarone. Leukocytosis most likely steroid effect. TSH was low at 0.14; free T4 pending.
[2017-07-09] MEDS: CEFTRIAXONE 1 G in NS 100 ML IV SCH (10:54)
[2017-07-09] MEDS: FLECAINIDE 100 MG TABLET PO SCH ×2 (10:54→20:32)
[2017-07-09] MEDS: REFRESH CLASSIC Eye Drops 0.4ml EACH EYE PRN (17:17)
[2017-07-09] MEDS: NYSTATIN 500,000 units/5 ml ORAL LIQUID PO SCH ×2 (17:37→20:34)
[2017-07-09] MEDS: INSULIN GLARGINE 100unit/ml INJECTION SQ SCH (20:33)
[2017-07-09] MEDS ORDERED: NYSTATIN 500,000 units/5 ml ORAL LIQUID PO SCH (21:00)
[2017-07-10] MEDS: ALBUTEROL/IPRATROPIUM 2.5mg-0.5mg/3ml NEB AEROSOL SCH ×4 (06:19→19:43)
[2017-07-10] MEDS: BUDESONIDE INH.SOLN 0.5mg/2ml NEB AEROSOL SCH (06:20)
[2017-07-10] MEDS: LORazepam 1 MG TABLET PO SCH ×4 (08:01→20:30)
[2017-07-10] MEDS: INSULIN ASPART 100unit/ml INJECTION SQ SCH ×3 (08:53→18:24)
[2017-07-10] MEDS: FLECAINIDE 100 MG TABLET PO SCH ×2 (08:57→21:25)
[2017-07-10] MEDS: PredniSONE 20 MG TABLET PO SCH (08:58)
[2017-07-10] MEDS: MAGNESIUM OXIDE 400 MG TABLET PO SCH (08:58)
[2017-07-10] MEDS: FUROSEMIDE 80 MG TABLET PO SCH (08:59)
[2017-07-10] MEDS: APIXABAN 5 MG TABLET PO SCH ×2 (08:59→20:31)
[2017-07-10] MEDS: OMEPRAZOLE 20 MG CAPSULE PO SCH (09:00)
[2017-07-10] MEDS: THEOPHYLLINE 80 MG/15 ML PO SCH ×2 (09:35→21:26)
[2017-07-10] MEDS: NYSTATIN 500,000 units/5 ml ORAL LIQUID PO SCH ×4 (09:35→20:29)
[2017-07-10] MEDS: SALINE FLUSH 10ml SYRINGE IVF PRN ×4 (10:14→15:20)
[2017-07-10] MEDS: CEFTRIAXONE 1 G in NS 100 ML IV SCH (11:22)
--- NOTE | 2017-07-10 13:24 | Pulmonology Progress Note ---
Subjective Principal diagnosis: COPD exacerbation Interval history: still tolerating BIPAP ST 18/5 rate 12, FiO2 50%. awake and alert. complains of blurry vision for the last several days also does not like using nebulized budesonide and would like to stop that. Exam Vital signs: Temperature 98.0 F 07/10/17 07:55 Pulse Rate 97 07/10/17 08:00 Respiratory Rate 24 07/10/17 12:47 Blood Pressure 119/75 07/10/17 07:55 Pulse Oximetry 97 07/10/17 07:55 Inpatient Medications: Generic Name Dose Route Start Last Admin Trade Name Freq PRN Reason Stop Dose Admin Albuterol Sulfate 2 puff 07/08/17 11:09 Ventolin Hfa ORAL INH Q4HR PRN Shortness of air Albuterol/Ipratropium 3 ml 07/06/17 12:28 07/07/17 00:30 Duoneb AEROSOL 3 ml Q4H PRN Administration Shortness of air Albuterol/Ipratropium 3 ml 07/06/17 15:00 07/10/17 06:19 Duoneb AEROSOL 3 ml RTQID [facility] Administration Apixaban 5 mg 07/09/17 10:01 07/10/17 08:59 Eliquis PO 5 mg BID [facility] Administration Artificial Tears 1 drop 07/07/17 18:34 07/09/17 17:17 Refresh Classic EACH EYE 1 drop QID PRN Administration Dry eyes Bisacodyl 10 mg 07/07/17 17:30 07/09/17 11:06 Dulcolax RECTALLY 10 mg DAILY PRN Administration Constipation Budesonide 0.5 mg 07/06/17 12:28 07/10/17 06:20 Pulmicort Inhalation AEROSOL 0.5 mg RTBID [facility] Administration Fenofibric Acid 135 mg 07/07/17 09:00 07/10/17 08:57 Triplix PO 135 mg DAILY [facility] Administration Flecainide Acetate 50 mg 07/09/17 09:59 07/10/17 08:57 Tambocor PO 50 mg BID [facility] Administration Furosemide 80 mg 07/07/17 09:00 07/10/17 08:59 Lasix 80 Mg Tab PO 80 mg DAILY [facility] Administration Ceftriaxone Sodium 1 g/ Sodium 100 mls @ 200 mls/hr 07/06/17 11:16 07/10/17 12:18 Chloride IV Infused Q24H [facility] Infusion Insulin Aspart 8 unit 07/07/17 08:00 07/10/17 08:53 Novolog SQ 8 unit 0800 [facility] Administration Insulin Aspart 13 unit 07/07/17 12:00 07/10/17 12:17 Novolog SQ 13 unit 1200 [facility] Administration Insulin Aspart 10 unit 07/06/17 17:00 07/09/17 17:37 Novolog SQ 10 unit 1700 [facility] Administration Insulin Aspart 1 - 5 unit 07/06/17 16:43 07/08/17 15:21 Novolog SQ 1 unit SS PRN Administration Hyperglycemia Protocol Insulin Glargine 15 unit 07/06/17 21:00 07/09/17 20:33 Lantus SQ 15 unit HS [facility] Administration Lorazepam 0.5 mg 07/06/17 12:28 07/10/17 10:15 Ativan Inj IVP 0.5 mg Q4H PRN Administration Air hunger/Anxiety Lorazepam 1 mg 07/06/17 17:00 07/10/17 12:47 Ativan PO 1 mg QID [facility] Administration Magnesium Hydroxide 30 ml 07/07/17 17:30 Mom PO DAILY PRN Constipation Magnesium Oxide 400 mg 07/07/17 09:00 07/10/17 08:58 Magox PO 400 mg DAILY [facility] Administration Nystatin 5 ml 07/09/17 17:33 07/10/17 12:47 Mycostatin PO 07/19/17 17:32 5 ml QID [facility] Administration Omeprazole 40 mg 07/07/17 09:00 07/10/17 09:00 Prilosec PO 40 mg DAILY [facility] Administration Polyethylene Glycol 17 gm 07/07/17 17:31 Miralax PO DAILY PRN Constipation Potassium Chloride 20 meq 07/09/17 12:00 07/10/17 12:17 K-Dur 20 Meq Tablet PO 20 meq WMHS [facility] Administration Prednisone 40 mg 07/08/17 14:00 07/10/17 08:58 Deltasone 20 Mg PO 40 mg WB [facility] Administration Senna/Docusate Sodium 1 tab 07/07/17 17:31 Senna Plus Tablet PO BID PRN Constipation Sodium Chloride 10 - 80 ml 07/06/17 09:58 07/10/17 12:18 Iv Flush IVF 10 ml PRN PRN Administration Flushing Theophylline 300 mg 07/06/17 21:00 07/10/17 09:35 Elixophyllin PO 300 mg BID [facility] Administration Discontinued Medications Generic Name Dose Route Start Last Admin Trade Name Nickie PRN Reason Stop Dose Admin Acetazolamide 500 mg 07/08/17 09:45 07/08/17 11:13 Diamox 500 Mg Sequels PO 07/08/17 09:46 500 mg O ONE Administration Albuterol/Ipratropium 3 ml 07/06/17 09:58 07/06/17 12:13 Duoneb IH 07/06/17 09:59 3 ml ONCE ONE Administration Amiodarone HCl 400 mg 07/08/17 14:32 07/09/17 10:00 Pacerone PO 07/14/17 21:00 Not Given BID [facility] Amiodarone HCl 200 mg 07/15/17 09:00 Pacerone PO DAILY [facility] Aspirin 81 mg 07/07/17 09:00 07/09/17 09:56 Ecotrin PO 81 mg DAILY [facility] Administration Diltiazem HCl 25 mg 07/08/17 11:32 07/08/17 12:17 Cardizem 25 Mg Inj IVP 07/08/17 11:33 25 mg O ONE Administration Enoxaparin Sodium 40 mg 07/06/17 12:28 07/08/17 09:26 Lovenox SQ 40 mg DAILY [facility] Administration Enoxaparin Sodium 40 mg 07/08/17 11:46 07/08/17 14:33 Lovenox SQ 07/08/17 11:47 40 mg O ONE Administration Enoxaparin Sodium 80 mg 07/08/17 21:00 07/09/17 09:56 Lovenox SQ 80 mg BID [facility] Administration Azithromycin 500 mg/ Sodium 250 mls @ 167 mls/hr 07/06/17 12:28 07/08/17 14: 57 Chloride IV Infused Q24H [facility] Infusion Insulin Aspart 13 unit 07/06/17 14:45 07/06/17 14:44 Novolog SQ 07/06/17 14:46 13 unit O ONE Administration Methylprednisolone Sodium Succinate 125 mg 07/06/17 09:58 07/06/17 11:48 Solu-Medrol IVP 07/06/17 09:59 Not Given O ONE Methylprednisolone Sodium Succinate 62.5 mg 07/06/17 17:00 07/08/17 09:25 Solu-Medrol IVP 62.5 mg Q8HR [facility] Administration Non-Formulary Medication 300 mg 07/06/17 21:00 Theophylline Anhydrous [Theophylline Anhydrous] PO BID [facility] Nystatin 5 ml 07/09/17 21:00 Mycostatin PO 07/19/17 20:59 QID [facility] Potassium Chloride 20 meq 07/06/17 17:30 07/08/17 09:26 K-Dur 20 Meq Tablet PO 20 meq [facility]HS [facility] Administration Potassium Chloride 20 meq 07/08/17 12:00 07/09/17 09:55 K-Dur 20 Meq Tablet PO 20 meq TIDWM [facility] Administration - Constitutional no acute distress, obese - Routine HEENT Exam Head: Present: normocephalic - Routine Neck Exam Present: supple - Routine Respiratory Exam Present: decreased breath sounds, prolonged expiratory phase. Absent: wheezes - Routine Cardiovascular Exam Present: RRR - Routine Abdominal Exam Present: soft. Absent: guarding Results - Laboratory Findings Laboratory: Laboratory Results - last 48 hr 07/08/17 07/08/17 07/08/17 04:03 15:06 20:42 WBC RBC Hgb Hct MCV MCH MCHC RDW Std Deviation Plt Count MPV Immature Gran % (Auto) Neut % (Auto) Lymph % (Auto) Bibb % (Auto) Eos % (Auto) Baso % (Auto) Neut # (Auto) Lymph # (Auto) Bibb # (Auto) Eos # (Auto) Baso # (Auto) Abs Immat Gran (auto) Neutrophils % (Manual) Band Neutrophils % Lymphocytes % (Manual) Monocytes % (Manual) Neutrophils # (Manual) Band Neutrophils # Lymphocytes # (Manual) Monocytes # (Manual) RBC Morph Comment Turbidity Sodium Potassium Chloride Carbon Dioxide Anion Gap BUN Creatinine GFR Calculation BUN/Creatinine Ratio Glucose Glucometer 164 147 Calculated Osmolality Calcium Magnesium Total Bilirubin Icterus Index AST ALT Alkaline Phosphatase Total Protein Albumin Globulin Albumin/Globulin Ratio TSH 0.14 L Specimen Hemolysis 07/09/17 07/09/17 07/09/17 04:05 04:05 06:09 WBC 15.4 H RBC 4.45 Hgb 13.5 Hct 43.9 MCV 98.7 MCH 30.3 MCHC 30.8 L RDW Std Deviation 45.6 Plt Count 199 MPV 11.4 Immature Gran % (Auto) Neut % (Auto) Lymph % (Auto) Bibb % (Auto) Eos % (Auto) Baso % (Auto) Neut # (Auto) Lymph # (Auto) Bibb # (Auto) Eos # (Auto) Baso # (Auto) Abs Immat Gran (auto) Neutrophils % (Manual) 83.0 H Band Neutrophils % 4.0 Lymphocytes % (Manual) 8.0 L Monocytes % (Manual) 5.0 Neutrophils # (Manual) 12.8 H Band Neutrophils # 0.6 Lymphocytes # (Manual) 1.2 Monocytes # (Manual) 0.8 RBC Morph Comment Normal Turbidity < 20 Sodium 143 Potassium 3.7 D Chloride 94 L Carbon Dioxide 40 H Anion Gap 9 BUN 19.0 H Creatinine 1.0 D GFR Calculation 56 BUN/Creatinine Ratio 19 Glucose 123 H Glucometer 121 Calculated Osmolality 278 Calcium 9.2 Magnesium 2.5 H Total Bilirubin 0.50 Icterus Index < 2 AST 25 ALT 18 Alkaline Phosphatase 51 Total Protein 5.8 L Albumin 3.5 Globulin 2.3 L Albumin/Globulin Ratio 1.5 TSH Specimen Hemolysis < 15 07/09/17 07/09/17 07/09/17 09:55 13:33 20:58 WBC RBC Hgb Hct MCV MCH MCHC RDW Std Deviation Plt Count MPV Immature Gran % (Auto) Neut % (Auto) Lymph % (Auto) Bibb % (Auto) Eos % (Auto) Baso % (Auto) Neut # (Auto) Lymph # (Auto) Bibb # (Auto) Eos # (Auto) Baso # (Auto) Abs Immat Gran (auto) Neutrophils % (Manual) Band Neutrophils % Lymphocytes % (Manual) Monocytes % (Manual) Neutrophils # (Manual) Band Neutrophils # Lymphocytes # (Manual) Monocytes # (Manual) RBC Morph Comment Turbidity Sodium Potassium Chloride Carbon Dioxide Anion Gap BUN Creatinine GFR Calculation BUN/Creatinine Ratio Glucose Glucometer 138 123 105 Calculated Osmolality Calcium Magnesium Total Bilirubin Icterus Index AST ALT Alkaline Phosphatase Total Protein Albumin Globulin Albumin/Globulin Ratio TSH Specimen Hemolysis 07/10/17 07/10/17 07/10/17 04:15 04:15 05:52 WBC 13.3 H RBC 4.62 Hgb 13.9 Hct 45.3 MCV 98.1 MCH 30.1 MCHC 30.7 L RDW Std Deviation 45.7 Plt Count 202 MPV 11.2 Immature Gran % (Auto) 0.4 Neut % (Auto) 73.3 H Lymph % (Auto) 17.8 L Bibb % (Auto) 8.3 Eos % (Auto) 0.1 Baso % (Auto) 0.1 Neut # (Auto) 9.8 H Lymph # (Auto) 2.4 Bibb # (Auto) 1.1 H Eos # (Auto) 0.0 Baso # (Auto) 0.0 Abs Immat Gran (auto) 0.05 H Neutrophils % (Manual) Band Neutrophils % Lymphocytes % (Manual) Monocytes % (Manual) Neutrophils # (Manual) Band Neutrophils # Lymphocytes # (Manual) Monocytes # (Manual) RBC Morph Comment Turbidity < 20 Sodium 144 Potassium 3.7 Chloride 94 L Carbon Dioxide 44 H* Anion Gap 6 BUN 21.0 H Creatinine 1.0 GFR Calculation 56 BUN/Creatinine Ratio 21 Glucose 86 Glucometer 86 Calculated Osmolality 279 Calcium 9.3 Magnesium Total Bilirubin Icterus Index < 2 AST ALT Alkaline Phosphatase Total Protein Albumin Globulin Albumin/Globulin Ratio TSH Specimen Hemolysis < 15 - Diagnostic Findings Chest x-ray: report reviewed (no significant change), image reviewed Assessment and Plan (1) Syncope Status: Acute Assessment and plan: CTA was negative No clear cause has been noted so far. Current Visit: Yes (2) COPD (chronic obstructive pulmonary disease) Status: Acute Assessment and plan: Severe disease, GOLD stage D. She was unable to perform PFT in our office. She is on home bronchodilators and has a preference to use Symbicort BID, Spiriva daily, neb albuterol as needed She is on O2 at 6-7 lpm at baseline and takes prednisone 10 mg daily continue current inpatient regimen stop budesonide. Current Visit: Yes (3) Acute on chronic respiratory failure with hypercapnia Status: Acute Assessment and plan: I agree with the use of NIPPV. currently on Vision BIPAP ST 18/5, rate 12, FIO2 35%. She is tolerating this with Vte 450 ML. As an outpatient we plan to switch her to a home [id number] with AVAPS-AE or iVAPS depending upon the equipment. Home vent to mask is indicated due to severe COPD with recurrent acute exacerbations of chronic hypercapnic respiratory failure. Use of the home vent to mask will reduced exacerbations, hospitalizations, disability and . Current Visit: Yes - Assessment and Plan Acute on Chronic Hypercapnic Respiratory Failure Severe COPD GOLD stage D (symbicort, spiriva, A/A at home) Syncope - likely 2/2 arrhythmia Obesity Anxiety Mild PHTN PAP 39 - Time Spent With Patient Total time spent is greater than 50% in coordination of care (as documented) at patient's floor/unit and/or counseling patient: less than 15 minutes
[2017-07-10] MEDS ORDERED: SYSTANE EYE DROPS 0.7ml EACH EYE PRN (17:02)
[2017-07-10] MEDS ORDERED: SENNA + DOCUSATE TABLET PO PRN (17:03)
--- NOTE | 2017-07-10 17:19 | Cardiology Progress Note ---
Subjective Principal diagnosis: COPD exacerbation Interval history: Allyson is seen in follow up for AFib. Exam Vital signs: Temperature 96.9 F 07/10/17 15:24 Pulse Rate 99 07/10/17 15:24 Respiratory Rate 33 H 07/10/17 15:33 Blood Pressure 128/81 07/10/17 15:24 Pulse Oximetry 94 07/10/17 15:33 Inpatient Medications: Generic Name Dose Route Start Last Admin Trade Name Freq PRN Reason Stop Dose Admin Albuterol Sulfate 2 puff 07/08/17 11:09 Ventolin Hfa ORAL INH Q4HR PRN Shortness of air Albuterol/Ipratropium 3 ml 07/06/17 12:28 07/07/17 00:30 Duoneb AEROSOL 3 ml Q4H PRN Administration Shortness of air Albuterol/Ipratropium 3 ml 07/06/17 15:00 07/10/17 15:33 Duoneb AEROSOL 3 ml RTQID [facility] Administration Apixaban 5 mg 07/09/17 10:01 07/10/17 08:59 Eliquis PO 5 mg BID [facility] Administration Artificial Tears 1 drop 07/07/17 18:34 07/09/17 17:17 Refresh Classic EACH EYE 1 drop QID PRN Administration Dry eyes Bisacodyl 10 mg 07/07/17 17:30 07/09/17 11:06 Dulcolax RECTALLY 10 mg DAILY PRN Administration Constipation Budesonide 0.5 mg 07/06/17 12:28 07/10/17 06:20 Pulmicort Inhalation AEROSOL 0.5 mg RTBID [facility] Administration Fenofibric Acid 135 mg 07/07/17 09:00 07/10/17 08:57 Triplix PO 135 mg DAILY [facility] Administration Flecainide Acetate 50 mg 07/09/17 09:59 07/10/17 08:57 Tambocor PO 50 mg BID [facility] Administration Furosemide 80 mg 07/07/17 09:00 07/10/17 08:59 Lasix 80 Mg Tab PO 80 mg DAILY [facility] Administration Ceftriaxone Sodium 1 g/ Sodium 100 mls @ 200 mls/hr 07/06/17 11:16 07/10/17 12:18 Chloride IV Infused Q24H [facility] Infusion Insulin Aspart 8 unit 07/07/17 08:00 07/10/17 08:53 Novolog SQ 8 unit 0800 [facility] Administration Insulin Aspart 13 unit 07/07/17 12:00 07/10/17 12:17 Novolog SQ 13 unit 1200 [facility] Administration Insulin Aspart 10 unit 07/06/17 17:00 07/09/17 17:37 Novolog SQ 10 unit 1700 [facility] Administration Insulin Aspart 1 - 5 unit 07/06/17 16:43 07/08/17 15:21 Novolog SQ 1 unit SS PRN Administration Hyperglycemia Protocol Insulin Glargine 15 unit 07/06/17 21:00 07/09/17 20:33 Lantus SQ 15 unit HS [facility] Administration Lorazepam 0.5 mg 07/06/17 12:28 07/10/17 15:17 Ativan Inj IVP 0.5 mg Q4H PRN Administration Air hunger/Anxiety Lorazepam 1 mg 07/06/17 17:00 07/10/17 12:47 Ativan PO 1 mg QID [facility] Administration Magnesium Hydroxide 30 ml 07/07/17 17:30 Mom PO DAILY PRN Constipation Magnesium Oxide 400 mg 07/07/17 09:00 07/10/17 08:58 Magox PO 400 mg DAILY [facility] Administration Nystatin 5 ml 07/09/17 17:33 07/10/17 12:47 Mycostatin PO 07/19/17 17:32 5 ml QID [facility] Administration Omeprazole 40 mg 07/07/17 09:00 07/10/17 09:00 Prilosec PO 40 mg DAILY [facility] Administration Polyethyl Glycol/Propylene Glycol 1 drop 07/10/17 17:02 Systane Eye Drops EACH EYE PRN PRN Polyethylene Glycol 17 gm 07/10/17 17:00 Miralax PO DAILY [facility] Potassium Chloride 20 meq 07/09/17 12:00 07/10/17 12:17 K-Dur 20 Meq Tablet PO 20 meq [facility] Administration Prednisone 40 mg 07/08/17 14:00 07/10/17 08:58 Deltasone 20 Mg PO 40 mg WB [facility] Administration Senna/Docusate Sodium 2 tab 07/10/17 17:03 Senna Plus Tablet PO BID PRN Constipation Sodium Chloride 10 - 80 ml 07/06/17 09:58 07/10/17 15:20 Iv Flush IVF 10 ml PRN PRN Administration Flushing Theophylline 300 mg 07/06/17 21:00 07/10/17 09:35 Elixophyllin PO 300 mg BID [facility] Administration Discontinued Medications Generic Name Dose Route Start Last Admin Trade Name Nickie PRN Reason Stop Dose Admin Acetazolamide 500 mg 07/08/17 09:45 07/08/17 11:13 Diamox 500 Mg Sequels PO 07/08/17 09:46 500 mg O ONE Administration Albuterol/Ipratropium 3 ml 07/06/17 09:58 07/06/17 12:13 Duoneb IH 07/06/17 09:59 3 ml ONCE ONE Administration Amiodarone HCl 400 mg 07/08/17 14:32 07/09/17 10:00 Pacerone PO 07/14/17 21:00 Not Given BID [facility] Amiodarone HCl 200 mg 07/15/17 09:00 Pacerone PO DAILY [facility] Aspirin 81 mg 07/07/17 09:00 07/09/17 09:56 Ecotrin PO 81 mg DAILY [facility] Administration Diltiazem HCl 25 mg 07/08/17 11:32 07/08/17 12:17 Cardizem 25 Mg Inj IVP 07/08/17 11:33 25 mg O ONE Administration Enoxaparin Sodium 40 mg 07/06/17 12:28 07/08/17 09:26 Lovenox SQ 40 mg DAILY [facility] Administration Enoxaparin Sodium 40 mg 07/08/17 11:46 07/08/17 14:33 Lovenox SQ 07/08/17 11:47 40 mg O ONE Administration Enoxaparin Sodium 80 mg 07/08/17 21:00 07/09/17 09:56 Lovenox SQ 80 mg BID [facility] Administration Azithromycin 500 mg/ Sodium 250 mls @ 167 mls/hr 07/06/17 12:28 07/08/17 14: 57 Chloride IV Infused Q24H [facility] Infusion Insulin Aspart 13 unit 07/06/17 14:45 07/06/17 14:44 Novolog SQ 07/06/17 14:46 13 unit O ONE Administration Methylprednisolone Sodium Succinate 125 mg 07/06/17 09:58 07/06/17 11:48 Solu-Medrol IVP 07/06/17 09:59 Not Given O ONE Methylprednisolone Sodium Succinate 62.5 mg 07/06/17 17:00 07/08/17 09:25 Solu-Medrol IVP 62.5 mg Q8HR [facility] Administration Non-Formulary Medication 300 mg 07/06/17 21:00 Theophylline Anhydrous [Theophylline Anhydrous] PO BID [facility] Nystatin 5 ml 07/09/17 21:00 Mycostatin PO 07/19/17 20:59 QID [facility] Polyethylene Glycol 17 gm 07/07/17 17:31 Miralax PO DAILY PRN Constipation Potassium Chloride 20 meq 07/06/17 17:30 07/08/17 09:26 K-Dur 20 Meq Tablet PO 20 meq [facility] Administration Potassium Chloride 20 meq 07/08/17 12:00 07/09/17 09:55 K-Dur 20 Meq Tablet PO 20 meq TID[facility] Administration Senna/Docusate Sodium 1 tab 07/07/17 17:31 Senna Plus Tablet PO BID PRN Constipation Results 07/10/17 04:15 07/10/17 04:15 CBC 07/10/17 Range/Units 04:15 WBC 13.3 H (4.5-11.0) T/MM3 RBC 4.62 (4.00-5.20) M/MM3 Hgb 13.9 (12-16) GM/DL Hct 45.3 (36-46) % Plt Count 202 (130-400) T/MM3 Neut # (Auto) 9.8 H (1.8-7.7) T/MM3 Lymph # (Auto) 2.4 (1-4.8) T/MM3 Wilkinson # (Auto) 1.1 H (0-0.8) T/MM3 Eos # (Auto) 0.0 (0-0.5) T/MM3 Baso # (Auto) 0.0 (0-0.2) T/MM3 Comprehensive Metabolic Panel 07/10/17 Range/Units 04:15 Sodium 144 (134-144) MEQ/L Potassium 3.7 (3.6-5) MEQ/L Chloride 94 L (98-107) MEQ/L Carbon Dioxide 44 H* (22-30) MEQ/L BUN 21.0 H (7-17) MG/DL Creatinine 1.0 (0.7-1.2) mg/dL Glucose 86 (65-110) MG/DL Calcium 9.3 (8.4-10.2) MG/DL Intake and Output 07/10/17 07/10/17 07/10/17 06:59 14:59 22:59 Intake Total 250 / 250 1400 / 1400 Output Total 300 / 300 2350 / 2350 175 / 175 Balance -50 / -50 -950 / -950 -175 / -175 Intake: IV 100 / 100 Ceftriaxone 1 g In Ns 100 ml @ 100 / 100 200 mls/hr IV Q24H [facility] Rx#: [id number] Oral 250 / 250 1300 / 1300 Output: Urine 300 / 300 2350 / 2350 175 / 175 Other: Urine Appearance Clear Clear Urine Color Yellow Yellow Yellow Urine Odor Normal # Voids 1 Weight 75.2 kg Patient Weight 07/11/17 06:59 Weight 75.2 kg Assessment and Plan - Assessment and Plan (1) Community acquired pneumonia Current visit: Yes Status: Acute (2) Acute exacerbation of chronic obstructive airways disease Current visit: Yes Status: Acute (3) Acute on chronic respiratory failure with hypercapnia Current visit: Yes Status: Acute (4) Atrial fibrillation with RVR Current visit: Yes Status: Acute (5) Mixed hyperlipidemia Current visit: Yes Status: Chronic (6) Type 2 diabetes mellitus without complications Current visit: Yes Status: Chronic (7) Obesity Current visit: Yes Status: Chronic - Assessment and Plan 07/10/17: Pt is Hospital Course Summary Disclaimer: The visit summary below is not to be considered part of the above Progress Note. Hospital Course: 07/06 Admit, inpatient status under the hospitalist service. Consult Dr. Amado. Rocephin/azithromycin for CAP. Solu-Medrol 62.5 mg TID for COPD. Supportive care with DuoNeb, home inhalers, theophylline, BiPAP PRN. Home O2 6- 7L. Monitor blood sugars; resume home insulin. Resume lasix + KDur. I/O, daily weights. Monitor telemetry. Code status: DNI. Care to return to Dr Williamson at [place] [facility] [place] Amado for pulmonary recommendations Continue with Rocephin/azithromycin for antimicrobial coverage of CAP. Remains on Bipap with schedule breathing treatments Continues on oral Lasix 80 milligrams daily, follow daily weights, monitor electrolytes Continue to monitor Accu-Cheks, continues on Lantus 15 units at bedtime, NovoLog with meals Evaluated by PT and OT today. Recommend home with assistance 07/08 Sinus tach 120-140 this am. Highly anxious despite being on lorazepam 1 mg PO QID + PRN lorazepam IV (1 daily PRN dose). CTA chest done on 07/06 was neg for PE. A-fib with aberrancy. Consult Dr. Aguilar and order echo. Solu-Medrol converted to Prednisone. Dr. Amado recommending home vent to mask. Continue abx for CAP. CXR reviewed - b/l lower lobe pneumonia. Labs -CO2 up to 41 and Diamox ordered. -leukocytosis - likely r/t steroids -K 4.9 - decrease KDur from QID to TID. Cont Lasix. creatinine 0.7. -hyperglycemia after breakfast this am with sugar of 297 - cont insulin. 07/09 Pulm service working on getting her a home vent to mask. Continue lorazepam for anxiety. Continue supportive care with DuoNeb, Pulmicort, and prednisone. Acapella changed to PRN d/t pt preference. HR improved today; currently in sinus - on 07/08, cardiology started amiodarone 400 mg twice a day for 7 days, and then decrease to 200 mg daily. Echocardiogram showed an EF of 55%, mild tricuspid regurgitation and mild pulmonary hypertension. She was started on Eliquis 5 mg BID for anticoagulation. Cont Rocephin for CAP. Will dc azithromycin d/t risk of QT prolongation while on amiodarone. Leukocytosis most likely steroid effect. TSH was low at 0.14; free T4 pending.
--- NOTE | 2017-07-10 17:20 | Progress Note ---
- Date 07/10/17 Subjective: Mrs. Salgado reports that she feels fine; she denies cough and reports breathing is at baseline. She is getting to and from the bathroom without difficulty and is on BiPAP virtually 100% of the time which is normal for her. She is generally off BiPAP only 5-20 minutes at a time when she is up to the bathroom or repositioning herself at home. She denied chest pain, palpitations, nausea, or lightheadedness. Her appetite is getting better. She reports chronic constipation and that she needs a stool softener. Yesterday she reported a sore throat and a bad taste in her mouth late in the day which has improved following initiation of nystatin. She additionally describes some blurry vision which has been present for 2-3 weeks and preceded the hospitalization. She initially thought she might have scratched or rubbed her eye but it hasn't resolved. Concerned about possible dry eyes. Objective Vital signs: Temperature 96.9 F 07/10/17 15:24 Pulse Rate 99 07/10/17 15:24 Respiratory Rate 33 H 07/10/17 15:33 Blood Pressure 128/81 07/10/17 15:24 Pulse Oximetry 94-BiPAP, FiO2 40% 07/10/17 15:33 I/O 2120/1950 NAD, alert, BiPAP on when seen Conjunctiva slightly injected, sclera anicteric, EOMI, tongue with faint white coating Respirations nonlabored, decreased airflow, breath sounds clear Regular rhythm, S1-S2 Abdomen soft, nontender, obese, bowel sounds present Extremities without edema Rhythm: Sinus Tachycardia (with occasional PVCs) Height/Weight/BMI: Height 1.55 m Weight 75.2 kg Body Mass Index 32.8 Results - Labs CBC & Chem 7: 07/10/17 04:15 07/10/17 04:15 Labs: Blood sugars 46-131 over the past 24 hours - ECG Data Tracing #1 Arrhythmias present: sinus tach (rate 106, QTC 0.386) - Imaging and Cardiology Chest x-ray Status: image reviewed by me (COPD) Assessment and Plan (1) Acute exacerbation of chronic obstructive airways disease Current visit: Yes Status: Acute Assessment and Plan: Assessment Acute on chronic hypercapnic/hypoxic resp failure with resp acidosis Paroxysmal atrial fibrillation COPD with exac. CAP-described on chest x-ray 07/08/17 CO2 Narcosis Sinus tachycardia Nonsustained VTAC - ruled out by cardiology, Hilda aguero with aberrancy DM2, insulin dependent Hypoglycemia, 07/10/17 Dyslipidemia GERD Mild CHF per hx Obesity Thrush Visual blurring-etiology uncertain Plan Clinically stable: EMS records reviewed-patient found off oxygen/hypoxic after transposition mean from BiPAP to nasal cannula but cannula not connected to O2 flow meter. Initial cardiac rhythm sinus tach (heart rates 100-102) and remained ST while EMS present/transported. No focal neuro abnormalities described and patient was modestly hypertensive when initially evaluated. Accu-Chek 210. Day 5 ceftriaxone; infiltrate not described on initial films but subsequently reported 2 days after admission with question of possible aspiration and patient was reported to have vomited prior to transport by EMS. Anticipate converting to oral antibiotics at discharge or simply discontinuing as 5 day course has been completed. Leukocytosis resolving but timing of white count suggests largely result of steroids. Patient has BiPAP at home; plan conversion to home vent to mask when equipment available. Discussed waiting for equipment in the home environment with continued use of BiPAP with Dr. Amado today-agreeable to this option. Discontinue Pulmicort; anticipate resuming Symbicort and Spiriva at discharge as patient has previously been stable on this combination of medications in conjunction with low-dose prednisone, theophylline, and when necessary nebulized treatments. Cardiac rhythm stable, low-grade sinus tachycardia on telemetry. Sotalol initiated yesterday, will discuss with cardiology whether there is need for further adjustment in dose and inpatient monitoring on telemetry. Free T4 pending. Echocardiogram showed an EF of 55%, mild tricuspid regurgitation and mild pulmonary hypertension. She was started on Eliquis 5 mg BID for anticoagulation. Nystatin initiated for thrush; Systane eyedrops added and patient will require formal eye evaluation as an outpatient. Hypoglycemia reported after lunch today, NovoLog increased while on Solu-Medrol- dosages decreased to usual dose NovoLog and Lantus decreased by 1/3rd due to poor oral intake and borderline low fasting blood sugars the past 2 days. HCO3 remains elevated, weight down 4 kg from admission-patient does not appear to be receiving supplemental doses of diuretics other than single dose of Diamox given 2 days ago. Reassess in a.m. HCO3 previously 43-49 [id number] Amado, briefly discussed with cardiology-will discuss further with cardiology after patient seen by them. DVT Prophylaxis: Eliquis GI Prophylaxis: Omeprazole Resuscitation Status: Do Not Intubate - Physician Narrative Narrative: Date: 07/10/17 Time: 1716 Hospital Course Summary Disclaimer: The visit summary below is not to be considered part of the above Progress Note. Hospital Course: 07/06 Admit, inpatient status under the hospitalist service. Consult Dr. Amado. Rocephin/azithromycin for CAP. Solu-Medrol 62.5 mg TID for COPD. Supportive care with DuoNeb, home inhalers, theophylline, BiPAP PRN. Home O2 6- 7L. Monitor blood sugars; resume home insulin. Resume lasix + KDur. I/O, daily weights. Monitor telemetry. Code status: DNI. Care to return to Dr Williamson at time of discharge from [facility]. 07/[address] Amado for pulmonary recommendations Continue with Rocephin/azithromycin for antimicrobial coverage of CAP. Remains on Bipap with schedule breathing treatments Continues on oral Lasix 80 milligrams daily, follow daily weights, monitor electrolytes Continue to monitor Accu-Cheks, continues on Lantus 15 units at bedtime, NovoLog with meals Evaluated by PT and OT today. Recommend home with assistance 07/08 Sinus tach 120-140 this am. Highly anxious despite being on lorazepam 1 mg PO QID + PRN lorazepam IV (1 daily PRN dose). CTA chest done on 07/06 was neg for PE. A-fib with aberrancy. Consult Dr. Aguilar and order echo. Solu-Medrol converted to Prednisone. Dr. Amado recommending home vent to mask. Continue abx for CAP. CXR reviewed - b/l lower lobe pneumonia. Labs -CO2 up to 41 and Diamox ordered. -leukocytosis - likely r/t steroids -K 4.9 - decrease KDur from QID to TID. Cont Lasix. creatinine 0.7. -hyperglycemia after breakfast this am with sugar of 297 - cont insulin. 07/09 Pulm service working on getting her a home vent to mask. Continue lorazepam for anxiety. Continue supportive care with DuoNeb, Pulmicort, and prednisone. Acapella changed to PRN d/t pt preference. HR improved today; currently in sinus - on 07/08, cardiology started amiodarone 400 mg twice a day for 7 days, and then decrease to 200 mg daily. Echocardiogram showed an EF of 55%, mild tricuspid regurgitation and mild pulmonary hypertension. She was started on Eliquis 5 mg BID for anticoagulation. Cont Rocephin for CAP. Will dc azithromycin d/t risk of QT prolongation while on amiodarone. Leukocytosis most likely steroid effect. TSH was low at 0.14; free T4 pending. 07/10 Clinically stable: EMS records reviewed-patient found off oxygen/hypoxic after transposition mean from BiPAP to nasal cannula but cannula not connected to O2 flow meter. Initial cardiac rhythm sinus tach (heart rates 100-102) and remained ST while EMS present/transported. No focal neuro abnormalities described and patient was modestly hypertensive when initially evaluated. Accu-Chek 210. Day 5 ceftriaxone; infiltrate not described on initial films but subsequently reported 2 days after admission with question of possible aspiration and patient was reported to have vomited prior to transport by EMS. Anticipate converting to oral antibiotics at discharge or simply discontinuing as 5 day course has been completed. Leukocytosis resolving but timing of white count suggests largely result of steroids. Patient has BiPAP at home; plan conversion to home vent to mask when equipment available. Discussed waiting for equipment in the home environment with continued use of BiPAP with Dr. Amado today-agreeable to this option. Discontinue Pulmicort; anticipate resuming Symbicort and Spiriva at discharge as patient has previously been stable on this combination of medications in conjunction with low-dose prednisone, theophylline, and when necessary nebulized treatments. Cardiac rhythm stable, low-grade sinus tachycardia on telemetry. Sotalol initiated yesterday, will discuss with cardiology whether there is need for further adjustment in dose and inpatient monitoring on telemetry. Free T4 pending. Echocardiogram showed an EF of 55%, mild tricuspid regurgitation and mild pulmonary hypertension. She was started on Eliquis 5 mg BID for anticoagulation. Nystatin initiated for thrush; Systane eyedrops added and patient will require formal eye evaluation as an outpatient. Hypoglycemia reported after lunch today, NovoLog increased while on Solu-Medrol- dosages decreased to usual dose NovoLog and Lantus decreased by 1/3rd due to poor oral intake and borderline low fasting blood sugars the past 2 days. HCO3 remains elevated, weight down 4 kg from admission-patient does not appear to be receiving supplemental doses of diuretics other than single dose of Diamox given 2 days ago. Reassess in a.m. HCO3 previously 43-49 [id number].
[2017-07-10] MEDS ORDERED: INSULIN ASPART 100unit/ml INJECTION SQ SCH ×2 (17:23→17:30)
[2017-07-10] MEDS: POLYETHYL GLYCOL 3350 17gm PACKET PO SCH (18:23)
[2017-07-10] MEDS: INSULIN GLARGINE 100unit/ml INJECTION SQ SCH ×2 (19:46→20:32)
[2017-07-10] MEDS: INSULIN ASPART 100unit/ml INJECTION SQ PRN (20:31)
[2017-07-11] MEDS: ALBUTEROL/IPRATROPIUM 2.5mg-0.5mg/3ml NEB AEROSOL SCH ×3 (07:10→15:29)
[2017-07-11] MEDS: NYSTATIN 500,000 units/5 ml ORAL LIQUID PO SCH ×2 (08:52→13:04)
[2017-07-11] MEDS: MAGNESIUM OXIDE 400 MG TABLET PO SCH (08:53)
[2017-07-11] MEDS: PredniSONE 20 MG TABLET PO SCH (08:53)
[2017-07-11] MEDS: OMEPRAZOLE 20 MG CAPSULE PO SCH (08:53)
[2017-07-11] MEDS: FUROSEMIDE 80 MG TABLET PO SCH (08:53)
[2017-07-11] MEDS: APIXABAN 5 MG TABLET PO SCH (08:54)
[2017-07-11] MEDS: FLECAINIDE 100 MG TABLET PO SCH (08:55)
[2017-07-11] MEDS: THEOPHYLLINE 80 MG/15 ML PO SCH (09:02)
[2017-07-11] MEDS: POLYETHYL GLYCOL 3350 17gm PACKET PO SCH (09:02)
[2017-07-11] MEDS: INSULIN ASPART 100unit/ml INJECTION SQ SCH (09:03)
[2017-07-11] MEDS: LORazepam 1 MG TABLET PO SCH ×2 (09:04→13:04)
--- NOTE | 2017-07-11 11:02 | XRay Report ---
Indication: congestion PROCEDURE: XR chest 1V: Encounter: Initial Comparison: July 08, 2017 Findings: Emphysema and hyperinflation with chronic pleural thickening versus scarring. No acute consolidative pneumonia. No pneumothorax or effusion. Heart size and mediastinal contours are stable. Pulmonary vascularity is unchanged. Impression: Stable appearance of the chest. No pneumonia. .
[2017-07-11] MEDS: CEFTRIAXONE 1 G in NS 100 ML IV SCH (13:05)
[2017-07-11 14:19] VITALS: RESP 24
[2017-07-11 15:16] VITALS: BP 134/86; PULSE 99; TEMP 98.3
[2017-07-11 15:42] VITALS: O2SAT 95
[2017-07-11] MEDS: INSULIN ASPART 100unit/ml INJECTION SQ PRN (16:24)
--- NOTE | 2017-07-11 20:08 | Discharge Summary ---
Discharge Information Date of admission: 07/06/17 11:08 Anticipated date of discharge: 07/11/17 Attending Physician: Danita Barrios MD Primary care physician: John Williamson MD Consults: Consulting Provider: Reese Amado Reason For Exam: copd Consulting Provider: Malik Aguilar Reason For Exam: Nonsustained VTACH - Discharge Diagnosis (1) Acute exacerbation of chronic obstructive airways disease Status: Acute Acute on chronic hypercapnic/hypoxic resp failure with resp acidosis COPD with exacerbation Paroxysmal atrial fibrillation CAP CO2 Narcosis Syncope/altered level of consciousness Sinus tachycardia DM2, insulin dependent Hypoglycemia, 07/10/17 Dyslipidemia GERD Mild CHF, chronic Obesity Thrush Visual blurring-etiology uncertain - Procedures Procedures: Echocardiogram on 07/08/17: This is a two-dimensional echo with spectral Doppler, color-flow and M-mode. It was obtained in a patient with atrial fibrillation. This is a technically very difficult study and limited information and data were obtained from the study. Left atrium appears to be normal in dimension. Left ventricle end-diastolic dimension is normal. Left ventricle wall thickness is normal. LV systolic function is normal with ejection fraction of 54%. Right atrium is normal. Right ventricle is normal. The mitral valve was not visualized well. Aortic valve was not visualized. Tricuspid valve shows mild tricuspid regurgitation with mild pulmonary hypertension with estimated pulmonary artery systolic pressure of 39. Pulmonary valve was not visualized. There is no pericardial effusion. 1. Technically difficult study. 2. Grossly normal LV systolic function with ejection fraction of 54%. 3. Mild tricuspid regurgitation with mild pulmonary hypertension with estimated pulmonary artery systolic pressure of 39. - Laboratory Labs: On date of admission (07/06/17) white count 11.2, hemoglobin 14.7; sodium 146, creatinine 0.7, liver enzymes unremarkable, troponin <0.012, proBNP 59.4. ABG on admission 7.185/100/69.8/37.9 87% saturated on BiPAP with FiO2 40% Respiratory viral panel negative TSH 0.14 on 07/08/17; free T4 pending at discharge 07/11/17 03:52 07/11/17 03:52 - Radiology Radiology: Chest x-ray on 07/06/17 revealed left lower lobe atelectasis versus pneumonia. ----- CTA of the chest, pulmonary emboli protocol on 5/22: Exam is diagnostic to the segmental pulmonary arterial level. No filling defects identified to suggest a pulmonary embolus. Other findings: Azygos fissure noted incidentally. Emphysema with areas of subpleural scarring. No lobar pneumonia, pleural effusion or pneumothorax. No dominant pulmonary nodules or masses. The central airways are patent. No axillary or mediastinal adenopathy. Heart size is normal. No pericardial effusion. The upper abdomen shows no acute findings. Impression: No pulmonary embolus or acute intrathoracic disease process seen. ----- Chest x-ray 07/08/17 demonstrated increasing bilateral lower lobe airspace disease suggestive of pneumonia/aspiration. ----- Chest x-ray on 07/10/17 revealed emphysema and hyperinflation with chronic pleural thickening but no evidence of pneumonia or heart failure. History of Present Illness HPI: Allyson Salgado is a 67 y/o woman with a hx of O2-dependent COPD. She wears 6- 7L of O2 continuously and uses BiPAP at night. She is wheelchair bound, left unable to ambulate b/c of breathing difficulties. Her left at 0600 on , leaving Allyson still in bed sleeping. When he returned around 0900 to get her ready to go to see Dr. Amado, however, she was lying on the floor, unresponsive. He noticed that the oxygen tubing was in the BiPAP but was not plugged in. He suspected that she was trying to check the machine, and fell out of it - it's unknown if she became unresponsive first from CO2 retention/ hypoxia or if she simply lost her balance. He called 911 and she was transferred to [facility]. She was afebrile, tachycardic (105), tachypneic (27), and hypertensive. She was started on BiPAP. She was unresponsive initially and labs showed severe resp acidosis with pH of 7.185, pCO2 of 100, and pO2 of 69.8. CXR showed LLL pneumonia. WBC was elevated at 11.7; lactate level was normal. She had a mildly elevated sodium at 146. Resp panel was ordered. With BiPAP, her mentation improved and she was able to answer questions. She denies having a cough but admits to subjective fever/chills. She uses a Neti pot for sinus problems; denies seasonal allergies. She has dyspnea at baseline but it hasn't been worse lately. She denies choking/aspiration. She feels weak but not dizzy. She denies chest pain or palpitations. No abdominal pain, n/v/d or appetite changes. She has constipation. She notes urinary urgency which she attributes to furosemide use. She denies leg swelling. There are a few bruises on her legs. With LLL pneumonia and acute on chronic resp failure, the hospitalist dept was notified for inpt admission. LOS is expected to exceed 2 overnights. Objective Vital signs: Temperature 98.3 F 07/11/17 15:16 Pulse Rate 99 07/11/17 15:16 Respiratory Rate 24 07/11/17 15:39 Blood Pressure 134/86 07/11/17 15:16 Pulse Oximetry 95 -BiPAP/7 L 07/11/17 15:39 NAD, alert, slightly anxious; nasal BiPAP on when seen Conjunctiva clear, oropharynx clear, tongue with minimal white plaque present Diminished air flow throughout but no wheezing or crackles appreciated Regular rhythm Rhythm: Normal Sinus Rhythm, Sinus Tachycardia (with occasional PVCs) Height/Weight/BMI: Height 1.55 m Weight 75.1 kg Body Mass Index 32.8 Hospital Course This is a general summary of the patient's hospital course. For more details refer to the complete medical record. Hospital course: 07/06 Admit, inpatient status under the hospitalist service. Consult Dr. Amado. Rocephin/azithromycin for CAP reported on chest x-ray. CTA chest done on 07/06 was neg for PE and no infiltrate described by CT. Solu-Medrol 62.5 mg TID for COPD. Supportive care with DuoNeb, home inhalers, theophylline, BiPAP PRN. Home O2 6- 7L. Monitor blood sugars; resume home insulin. Resume lasix + KDur. I/O, daily weights. Monitor telemetry. Code status: DNI. Care to return to Dr Williamson at time of discharge from [facility]. 07/[address] Amado for pulmonary recommendations Continue with Rocephin/azithromycin for antimicrobial coverage of CAP. Remains on Bipap with schedule breathing treatments Continues on oral Lasix 80 milligrams daily, follow daily weights, monitor electrolytes Continue to monitor Accu-Cheks, continues on Lantus 15 units at bedtime, NovoLog with meals. Evaluated by PT and OT today. Recommend home with assistance when medically stable. 07/08 Sinus tach 120-140 this am. Highly anxious despite being on lorazepam 1 mg PO QID + PRN lorazepam IV (1 daily PRN dose). Wide complex tachycardia-slightly irregular-lasting about 1 minute this morning- -> A-fib with aberrancy. Consult Dr. Aguilar and order echo. Solu-Medrol converted to Prednisone. Dr. Amado recommending home vent to mask. Continue abx for CAP. CXR reviewed - b/l lower lobe pneumonia. Labs -CO2 up to 41 and Diamox ordered. -leukocytosis - likely r/t steroids -K 4.9 - decrease KDur from QID to TID. Cont Lasix. creatinine 0.7. -hyperglycemia after breakfast this am with sugar of 297 - cont insulin. 07/09 Pulm service working on getting her a home vent to mask. Continue lorazepam for anxiety. Continue supportive care with DuoNeb, Pulmicort, and prednisone. Acapella changed to PRN d/t pt preference. HR improved today; currently in sinus - on 07/08, cardiology started amiodarone 400 mg twice a day for 7 days, and then decrease to 200 mg daily. Echocardiogram showed an EF of 55%, mild tricuspid regurgitation and mild pulmonary hypertension. She was started on Eliquis 5 mg BID for anticoagulation. Cont Rocephin for CAP. Will dc azithromycin d/t risk of QT prolongation while on amiodarone (had completed 3 days azithromycin 500 mg per day). Leukocytosis consistent with steroid effect. TSH was low at 0.14; free T4 pending. 07/10 Clinically stable: EMS records reviewed-patient found off oxygen/hypoxic after transposition mean from BiPAP to nasal cannula but cannula not connected to O2 flow meter. Initial cardiac rhythm sinus tach (heart rates 100-102) and remained ST while EMS present/transported. No focal neuro abnormalities described and patient was modestly hypertensive when initially evaluated. Accu-Chek 210. Day 5 ceftriaxone; infiltrate not described on the CT and only questioned on initial chest x-ray (versus atelectasis) but subsequently reported 2 days after admission with question of possible aspiration and patient was reported to have vomited prior to transport by EMS. Anticipate discontinuing antibiotics at discharge as 5 day course will have been completed. Leukocytosis resolving but timing of white count suggests largely result of steroids. Patient has BiPAP at home; plan conversion to home vent to mask when equipment available. Discussed waiting for equipment in the home environment with continued use of BiPAP with Dr. Amado today-agreeable to this option. Discontinue Pulmicort; anticipate resuming Symbicort and Spiriva at discharge as patient has previously been stable on this combination of medications in conjunction with low-dose prednisone, theophylline, and when necessary nebulized treatments. Cardiac rhythm stable, low-grade sinus tachycardia on telemetry. Sotalol initiated yesterday, will discuss with cardiology whether there is need for further adjustment in dose and inpatient monitoring on telemetry. Free T4 pending. Echocardiogram showed an EF of 55%, mild tricuspid regurgitation and mild pulmonary hypertension. She was started on Eliquis 5 mg BID for anticoagulation. Nystatin initiated for thrush; Systane eyedrops added and patient will require formal eye evaluation as an outpatient. Hypoglycemia reported after lunch today, NovoLog increased while on Solu-Medrol- dosages decreased to usual dose NovoLog and Lantus decreased by 1/3rd due to poor oral intake and borderline low fasting blood sugars the past 2 days. HCO3 remains elevated, weight down 4 kg from admission-patient does not appear to be receiving supplemental doses of diuretics other than single dose of Diamox given 2 days ago. Reassess in a.m. HCO3 previously 43-49 between 2007- 2012 by chart review. 07/11/17-discharge Mrs. Salgado reports that she is at baseline today as she has for the past couple of days. Her brought her home BiPAP unit in and she used it for 4 -5 hours through the late morning and midafternoon with good tolerance before decision was made to discharge home to await delivery of home [id number] for future use. The patient describes some increased anxiety today which she attributes to it being her son's birthday. She denies recurrent respiratory symptoms or sputum production. Examination is notable only for diminished air flow throughout the lung hensley bilaterally. HCO3 43 today, stable and consistent with what it appears to up in over past years. Fasting blood sugar 91 and postprandials today without hypoglycemia. Discharge medications reviewed with the patient and her extensively. Samples of Eliquis provided by cardiology and a written prescription of Eliquis given for next month in addition to coupon provided by cardiology. Mrs. Salgado is asked to follow-up with Dr. Williamson in approximately one week, Dr. Amado in 1-2 weeks, and Dr. Aguilar in 2-3 weeks. We previously discussed follow-up with ophthalmology for reevaluation due to recent visual blurring. - Time spent with patient: discharge greater than 30 minutes Resuscitation Status: Do Not Intubate Discharge Plan - Discharge Disposition Disposition: Discharged Home, Self-Care *Condition: Stable Reason For Visit (Visit label in EMR): Hypoxic/Hypercapnic resp failure, pneumonia - Discharge Medications *Discharge Medications: New Apixaban [Eliquis] 5 mg PO BID #60 tab Budesonide/Formoterol Fumarate [Symbicort 160-4.5 Mcg Inhaler] 2 puff INH BID #1 inhaler Flecainide [Tambocor] 50 mg PO BID #60 tab Ipratropium [place] 1 dose AEROSOL Q4H PRN #100 vial PRN Reason: Shortness Of Air/Wheezing Nystatin Oral Liq. [Mycostatin] 5 ml PO QID #150 ml PEG 3350 17gm PACKET [Miralax] 17 gm PO DAILY packet Albuterol Neb (0.083%) [Proventil Neb (0.083%)] 2.5 mg AEROSOL Q4H PRN #100 vial PRN Reason: Shortness Of Air/Wheezing predniSONE [Prednisone] 30 mg PO DAILY #30 tab Continue Insulin Glargine,Hum.rec.anlog [Lantus] 15 u SQ HS #0 Ascorbate Calcium [Vitamin C] 500 mg PO DAILY LORazepam [Lorazepam] 1 mg PO QID Insulin Glargine,Hum.rec.anlog [Lantus Solostar] 15 unit SQ HS Magnesium Oxide [Magnesium] 400 mg PO DAILY Insulin Lispro [Humalog Kwikpen U-100] 8 unit SQ AC Albuterol HFA Inhaler [Ventolin Hfa 90 mcg/actuation] 1 puff INH DAILY Theophylline Anhydrous 300 mg PO BID Tiotropium Handihaler [Spiriva] 1 puff INH DAILY #1 inhaler Fenofibric Acid (Choline) [Trilipix] 135 mg PO DAILY #0 Furosemide [Lasix] 80 mg PO DAILY Omeprazole 40 mg PO DAILY Potassium Chloride 20 meq PO QID Discontinued Fluticasone/Salmeterol 500/50 [Advair 500-50Diskus] 1 puff INH BID #0 Aspirin [Adult Aspirin] 81 mg PO DAILY PredniSONE [Deltasone 10 mg] 10 mg PO DAILY #0 - Discharge Packet/Instructions *Diet: diabetic *Activity: as tolerates *Pain Management/Treatment: Tylenol as needed *Wound Care: Not applicable Additional Instructions: -Resume Symbicort 2 puffs twice daily with Spiriva once daily for COPD. -Use albuterol and ipratropium in the nebulizer every 4 hours as needed to help control your breathing symptoms. Mix the 2 medicines in your nebulizer before taking a treatment. -2 new medicines for the irregular heartbeat: Flecainide 50 mg 1 pill twice daily and Eliquis which is the blood thinner (you have samples for a month and a prescription when ready to refill it -I believe there is also a coupon provided by the transport technician to get the next month medication free or reduced cost). -Continue nystatin suspension for the next week to treat thrush. -Continue prednisone at 30 mg daily (3-10 mg tablets each morning) for the next 5 days and then decreased to 20 mg for 5 days after which you can reduce to 10 mg daily per year normal regimen provided your breathing is stable. Afebrile breathing gets worse as she reduce the prednisone dose increased back to the prior dose and contact Dr. Amado. - Your blood sugars have been running fairly low at the hospital because she haven 't been eating well despite being on prednisone. For the next couple of days reduce Lantus to 12 units at bedtime. Can increase back to 15 units at bedtime when your fasting blood sugar is above 120. -Schedule appointments with Dr. Williamson, Dr. Amado, and Dr. Aguilar as noted below. *Expected Signs/Symptoms: Shortness of breath, oxygen level may drop with activities. *Notify Physician if: Your breathing gets worse, you have fever, you become confused or pass out, or if you have chest pain *During Business Hours Contact: Dr. Williamson or Dr. Amado *After Business Hours Contact: Call [facility] at [phone] and ask that the on-call physician be paged *Pending Lab/Results: No Pending Lab - Referrals/Follow Up *Referrals/Follow Up: Malik Aguilar MD [Physician] - (2-3 weeks) Reese Amado MD [Physician] - (7-10 days) John Williamson MD [Primary Care Provider] - 1 Week - Patient Handouts Patient Handouts: Pneumonia (GEN) - Dismissal Complete Discharge Instructions are:: Complete Physician Narrative - Narrative Attestation Narrative: Date: 07/11/17 Time: 2003
[2017-07-15] MEDS ORDERED: AMIODARONE 200 MG TABLET PO SCH (09:00)
== END 2017-07-11 17:45 | disposition home or self-care (01) | DRG 193 ==
LOC: ED 09:43 → EDHOLD 11:08 → SUATTDRO 11:08 → MED 12:20
PROVIDERS: ADMIT Hospitalist; ATTEND Internal Medicine